=== PATIENT | male | born 1940 | race Caucasian/White ===

== ENCOUNTER 2018-03-12 09:27 | Inpatient (IN) | payer MEDICARE, BC ==
[~2018-03-12] VITALS: Ht 182.9 cm; Wt 106.1 kg
[~2018-03-12 09:27] MED LIST: ALEVE220 M1 PO; ASPIR 8181 MG PO; CENTRUM SILVER1 EAC4 PO; CHONDROITIN; COUMADIN 2 MG TA2 M1 PO; COUMADIN 3 MG TA3 M1 PO; COUMADIN 5 MG TA5 M1 PO; COZAAR 25 MG TA25 MG PO; DEMADEX20 MG PO; FLOMAX0.4 MG PO; FOLIC ACID; FOLIC ACID 40400 MC1 PO; FOSAMAX 70 MG T70 MG PO; GLUCOSAMINE &1 EAC1 PO; GLUCOSAMINE H1500 MG; GLUCOSAMINE H1500 MG PO; KEPPRA 500 MG500 M1 PO; KEPPRA250 MG PO; KLOR-CON 1010 MEQ PO; LAMICTAL100 MG; LAMICTAL100 MG PO; LASIX 40 MG TAB40 M1 PO; LUTEIN20 MG PO; MAGNESIUM500 MG PO; METOPROLOL SUCC25 M1 PO; OMEPRAZOLE 20 M20 M1; OPTI-VITAMINS1 EACH PO; OPTIFLEX-C400 MG PO; PACERONE 200 M200 M1 PO; POTASSIUM CL 225 MEQ; PRILOSEC 20 MG20 MG PO; PRILOSEC40 MG PO; SPIRONOLACTONE25 M1 PO; TAMSULOSIN HCL0.4 M1; VIT B12; VIT C; VIT D3; VITAMIN B-12500 MCG PO; VITAMIN C1000 MG PO; VITAMIN D35000 UNI1 PO
[2018-03-12 09:34] VITALS: BP 103/59
[2018-03-12] MEDS ORDERED: CARVEDILOL3.125 MG PO (09:48)
[2018-03-12] MEDS ORDERED: PROSCAR 5MG TABL5 MG PO (09:49)
[2018-03-12 10:11] LABS: ABSOLUTE EOSINOPHILS 0.1 thou/uL (0.0-0.7); ABSOLUTE LYMPHOCYTES 1.1 thou/uL (0.8-5.3); ABSOLUTE MONOCYTES 1.6 thou/uL (0.0-1.2); ABSOLUTE NEUTROPHILS 6.7 thou/uL (1.6-8.1); BASOPHILS 0.2 %; EOSINOPHILS 0.7 %; HEMATOCRIT 33.9 % (42.0-52.0); HEMOGLOBIN 11.4 gm/dL (14.0-18.0); LYMPHOCYTES 11.7 %; MCH 33.1 pg (26.0-34.0); MCHC 33.7 g/dL (28.0-37.0); MCV 98.1 fL (80.0-100.0); MONOCYTES 16.9 %; MPV 9.5 fl. (7.2-11.1); NUCLEATED RBCS 0 /100WBC; PLATELET COUNT* 156 thou/uL (150-400); POLYS 70.5 %; RBC 3.46 mil/uL (4.50-6.00); RDW-CV 13.5 % (10.5-14.5); WBC 9.5 thou/uL (4.0-11.0)
[2018-03-12 10:19] LABS: ANION GAP 7 mmol/L (7-16); BUN 19 mg/dL (7-18); CALCIUM 8.1 mg/dL (8.5-10.1); CHLORIDE 102 mmol/L (98-107); CO2 29 mmol/L (21-32); CREATININE 1.1 mg/dL (0.6-1.3); GLUCOSE 89 mg/dL (70-99); POTASSIUM 3.5 mmol/L (3.5-5.1); SODIUM 138 mmol/L (136-145)
[2018-03-12 10:20] LABS: APTT 48.5 Seconds (25.0-31.3); INR 3.2; PROTIME 30.6 Seconds (9.20-11.50)
[2018-03-12 10:29] LABS: ALBUMIN 2.9 g/dL (3.4-5.0); ALKALINE PHOSPHATASE 47 U/L (46-116); AMMONIA 12 umol/L (11-32); NT-PRO BRAIN NAT PEPTIDE 3262 pg/mL (<300); SGOT 22 U/L (15-37); SGPT 29 U/L (30-65); TOTAL BILIRUBIN 0.5 mg/dL (<0.1-1.0); TOTAL PROTEIN 7.3 g/dL (6.4-8.2); TROPONIN-I LEVEL <0.06 ng/mL (<0.06)
[2018-03-12 12:45] VITALS: BP 89/63
[2018-03-12 13:00] VITALS: BP 104/63
--- NOTE | 2018-03-12 14:33 | 2DMMODE ---
[place] [address] 2 D/M-MODE ECHOCARDIOGRAM Name: DIANA MORTENSEN Room: [address] IN .R.#: [id number] Admission: 03/12/18 Attend Phys: Montana Hussein Discharge: Date of : 36 Date of Service: 03/12/18 1433 Report #: [id number] THIS REPORT FOR: //name// APPROVED REPORT Study performed: 03/12/2018 11:31:25 EXAM: Comprehensive 2D, Doppler, and color-flow Echocardiogram Patient Location: In-Patient Room #: ER Status: routine BSA: 2.21 HR: 64 bpm BP: 83/46 mmHg Rhythm: Atrial Fibrillation Other Information Study Quality: Good Indications Hypotension 2D Dimensions LVEF(%): 39.14 (>50%) IVSd: 11.66 (7-11mm) LVOT Diam: 21.89 (18-24mm) LVDd: 54.11 mm PWd: 12.12 (7-11mm) Ascending Ao: 38.58 (22-36mm) LVDs: 43.73 (25-40mm) Aortic Root: 40.99 mm Ambrocio's LVEF: 39.14 % Volumes Left Atrial Volume (Systole) LA ESV Index: 57.60 mL/m2 Aortic Valve AoV Peak Caesar.: 1.19 m/s AO Peak Gr.: 5.68 mmHg LVOT Max P.31 mmHg AO Mean Gr.: 3.10 mmHg LVOT Mean P.04 mmHg LVOT Max V: 0.76 m/s AO V2 VTI: 19.59 cm LVOT Mean V: 0.46 m/s CHARLA (VTI): 2.76 cm2 LVOT V1 VTI: 14.38 cm AI [place]: 2.14 m/s2 AI PHT: 475.47 [place] [address] 2 D/M-MODE ECHOCARDIOGRAM Name: DIANA MORTENSEN Room: [address] IN .R.#: [id number] Admission: 03/12/18 Attend Phys: Montana Hussein Discharge: Date of : 36 Date of Service: 03/12/18 1433 Report #: [id number] Mitral Valve E/A Ratio: 2.55 MV Decel. Time: 142.96 ms MV E Max Caesar.: 0.48 m/s MV PHT: 41.46 ms MVA (PHT): 5.31 cm2 TDI E/Lateral E': 3.20 E/Medial E': 4.80 Medial E' Caesar.: 0.10 m/s Lateral E' Caesar.: 0.15 m/s Pulmonary Valve PV Peak Caesar.: 0.99 m/s PV Peak Gr.: 3.95 mmHg Tricuspid Valve RAP Estimate: 5.00 mmHg TR Peak Gr.: 35.96 mmHg PA Pressure: 40.00 mmHg Left Ventricle The left ventricle is normal size. There is global hypokinesis of the left ventricle. Mild concentric left ventricular hypertrophy. Left ventricular systolic function is severely decreased. LVEF is 25-30%. This study is not technically sufficient to allow evaluation of the LV diastolic function due to atrial fibrillation. Right Ventricle Right ventricle is dilated. The right ventricular systolic function is normal. Atria Left atrium is severely dilated. Right atrium is moderately dilated. Aortic Valve The aortic valve is normal in structure. Mild aortic regurgitation. There is no aortic valvular stenosis. Mitral Valve The mitral valve is normal in structure. Mild mitral regurgitation. No evidence of mitral valve stenosis. Tricuspid Valve The tricuspid valve is normal in structure. Moderate tricuspid regurgitation. The RVSP is 40-[place] [address] 2 D/M-MODE ECHOCARDIOGRAM Name: DIANA MORTENSEN Room: [address] IN M.R.#: [id number] Admission: 03/12/18 Attend Phys: Montana Hussein Discharge: Date of : 36 Date of Service: 03/12/18 1433 Report #: [id number] Pulmonic Valve The pulmonary valve is normal in structure. There is no pulmonic valvular regurgitation. Great Vessels Aortic root is mildly dilated. IVC is normal in size and collapses with >50% inspiration Pericardium There is no pericardial effusion. <Conclusion> Mild concentric left ventricular hypertrophy. LVEF is 25-30%. Right ventricle is dilated. Left atrium is severely dilated. Right atrium is moderately dilated. Mild aortic regurgitation. Mild mitral regurgitation. Moderate tricuspid regurgitation. The RVSP is 40-45 mmHg. <ELECTRONICALLY SIGNED> By: Dat Forman MD, FACC 03/12/18 1433 1433 1433 Dat Forman MD, FACC /INF
--- NOTE | 2018-03-12 14:40 | EKG ---
[place] [address] ELECTROCARDIOGRAM REPORT Name: DIANA MORTENSEN Room: [address] IN .R.#: [id number] Admission: 03/12/18 Attend Phys: Montana Nunes, Discharge: Date of : 36 Report #: [id number] THIS REPORT FOR: //name// [facility] ED Test Date: 2018-03-12 Test Time: 09:34:32 Pat Name: DIANA MORTENSEN Department: Room: Gender: Auto Technician Mechanic: Giorgio LEAVITT : 1940 Requested By: Miller Laughlin Order Number: [id number] MD: Dat Forman Measurements Intervals [place] Rate: 57 P: 63 VA: 85 QRS: -53 QRSD: 146 T: 71 QT: 415 QTc: 404 Interpretive Statements atrial fibrillation Left bundle branch block Compared to ECG 09/12/2014 12:27:53 Sinus rhythm no longer present Electronically Signed On 03-12-2018 14:40:39 CDT by Dat Forman [email or web address] <ELECTRONICALLY SIGNED> By: Dat Forman MD, [facility] 03/12/18 1440 0934 0934 Dat Forman MD, [facility] /EPI
--- NOTE | 2018-03-12 14:49 | NUR ---
RECEIVED REPORT FROM [facility] IN ED AND ASSUMED CARE OF PT @ 1300.PT IS A/O,VSS,TRACING AFIB WITH BBB ON THE MONITOR.LUNG SOUNDS ARE CLEAR DIMINSHED.LAST BM WAS YESTERDAY.IV LEFT HAND PATENT AND SALINE LOCKED.PT IS CALM AND COOPERATIVE WITH NO C/O PAIN AT TIME OF ASSESSMENT.PT IS UP WITH SBA TO BATHROOM.PT LEFT RESTING IN BED WITH CALL LIGHT AND FALL PRECAUTIONS IN PLACE.WILL CONTINUE TO MONITOR.
[2018-03-12 16:00] VITALS: BP 119/60
--- NOTE | 2018-03-12 18:32 | NUR ---
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 WILL CONTINUE TO MONITOR FOR DURATION OF SHIFT.
[2018-03-12 20:00] VITALS: BP 112/54
[2018-03-12] MEDS ORDERED: LAMICTAL100 MG PO (23:12)
[2018-03-13 00:25] VITALS: BP 107/55
[2018-03-13 03:56] VITALS: BP 110/60
[2018-03-13 04:04] LABS: INR 3.4; PROTIME 32.8 Seconds (9.20-11.50)
[2018-03-13 04:08] LABS: CHOLESTEROL 132 mg/dL (<200); HDL CHOLESTEROL 45 mg/dL (>40); LDL CHOLESTEROL 72 mg/dL (<100); TC:HDL 2.9 Ratio (Not establshd); TRIGLYCERIDE 79 mg/dL (<150); VLDL 16 mg/dL (<40)
[2018-03-13 04:21] LABS: SERUM ASSESSMENT CLEAR
--- NOTE | 2018-03-13 05:31 | NUR ---
ASSUMED PT CARE AT 1930. NURSING ASSESSMENT COMPLETED AT START OF SHIFT. PT TRACING AFIB WITH BUNDLE BRANCH BLOCK. HOURLY ROUNDING COMPLETED, CALL LIGHT WITHIN REACH. PT VOICED NO DIZZYNESS THIS SHIFT. PT SLOWLY PROGRESSING TOWARDS GOALS.
[2018-03-13 08:15] VITALS: BP 127/62
--- NOTE | 2018-03-13 09:44 | NUR ---
RECEIVED REPORT FROM TK AND ASSUMED CARE OF PT @ 3032.PT IS A/O,VSS,TRACING AFIB WITH BBB ON THE MONITOR.LUNG SOUNDS ARE CLEAR.LAST BM WAS YESTERDAY.IV RIGHT HAND PATENT AND SALINE LOCKED.PT IS CALM AND COOPERATIVE WITH NO C/O PAIN AT TIME OF ASSESSMENT. CALL LIGHT AND FALL PRECAUTIONS IN PLACE. WILL CONTINUE TO MONITOR.
[2018-03-13 11:54] VITALS: BP 121/64
--- NOTE | 2018-03-13 14:18 | NUR ---
Pt was sound asleep when CM went to assess, will f/u later
[2018-03-13 15:57] VITALS: BP 122/68
--- NOTE | 2018-03-13 18:09 | NUR ---
vss,cardiac monitoring in place with no changes this shift.pt progressing towards goals.pain managed well with po medications.iv patent and saline locked.cardiology restarted pt on medications.hourly rounding completed for pt safety.call light and fall precautions in place.will continue to monitor for duration of shift.
[2018-03-13 20:00] VITALS: BP 128/64
[2018-03-14] VITALS: BP 108/57
--- NOTE | 2018-03-14 03:59 | NUR ---
ASSUMED PT CARE AT 1930. NURSING ASSESSMENT COMPLETED AT START OF SHIFT. PT VOICED NO CONCERNS THIS SHFIT. PT TRACING AFIB WITH BUNDLE BRANCH BLOCK THIS SHIFT. PRN PAIN MEDICATON ADMINISTERED PER EMAR, WITH PARTIAL RELIEF. SEE EMAR FOR DOCUMENTATION. HOURLY ROUNDING COMPLETED. CALL LIGHT WITHIN REACH.
[2018-03-14 04:00] VITALS: BP 126/74
[2018-03-14 05:38] LABS: HEMATOCRIT 32.4 % (42.0-52.0); HEMOGLOBIN 10.8 gm/dL (14.0-18.0); INR 2.3; MCH 32.8 pg (26.0-34.0); MCHC 33.3 g/dL (28.0-37.0); MCV 98.3 fL (80.0-100.0); MPV 9.7 fl. (7.2-11.1); PROTIME 22.3 Seconds (9.20-11.50); RBC 3.3 mil/uL (4.50-6.00); RDW-CV 13.5 % (10.5-14.5); WBC 12.3 thou/uL (4.0-11.0)
[2018-03-14 05:41] LABS: CALCIUM 8.9 mg/dL (8.5-10.1); CREATININE 0.8 mg/dL (0.6-1.3); MAGNESIUM 2.3 mg/dL (1.8-2.4)
[2018-03-14 08:11] VITALS: BP 130/68
--- NOTE | 2018-03-14 08:45 | NUR ---
RECEIVED REPORT FROM TK AND ASSUMED CARE OF PT @ 4861.PT IS A/O,VSS,TRACING AFIB WITH BBB ON THE MONITOR.LUNG SOUNDS ARE CLEAR.ON 2L O2 NC.LAST BM WAS YESTERDAY.IV RIGHT HAND PATENT AND SALINE LOCKED.PT IS CALM AND COOPERATIVE WITH NO C/O PAIN AT TIME OF ASSESSMENT.PT IS UP SBA TO BATHROOM WITH CANE.PT LEFT RESTING IN BED WITH CALL LIGHT AND FALL PRECAUTIONS IN PLACE.WILL CONTINUE TO MONITOR.
[2018-03-14 12:00] VITALS: BP 124/75
[2018-03-14 16:00] VITALS: BP 121/68
--- NOTE | 2018-03-14 17:50 | NUR ---
VSS,CARDIAC MONITORING IN PLACE WITH NO CHANGES.PT REMAINS ON 2L O2 NC.PAIN MANAGED WELL WITH PO MEDICATIONS.IV PATENT AND SALINE LOCKED.VQ SCAN ORDERED AND US DOPPLER.PT INFORMED OF PLAN OF CARE AND COMMUNICATES UNDERSTANDING.HOURLY ROUNDING COMPLETED FOR PT SAFETY.CALL LIGHT AND FALL PRECAUTIONS IN PLACE.WILL CONTINUE TO MONITOR FOR DURATION OF SHIFT.
--- NOTE | 2018-03-14 18:19 | CON ---
[address] [address] CONSULTATION Name: DIANA MORTENSEN Room: [address] IN M.R.#: [id number] Admission: 03/12/18 Attend Phys: Montana Nunes, Discharge: Date of : 36 Report #: [id number] THIS REPORT FOR: //name// CC: Micki Nascimento DATE OF SERVICE: 03/12/2018 TYPE OF REPORT: Cardiology consultation. HISTORY OF PRESENT ILLNESS: The patient is a 77-year-old white male who I was asked to see in the hospital today because his blood pressure is low. The patient has an extensive past medical history. He has had multiple hospitalizations here at [facility]. He was found to have evidence of a cardiomyopathy and Dr. Vasquez actually performed a cardiac catheterization back in November 2003 from the right radial artery. No ventriculogram was performed. He had minimal luminal irregularities but no significant stenosis. He developed atrial fibrillation, was placed on warfarin. They attempted cardioversion back in 2013 when he was anticoagulated with warfarin and he converted back to sinus rhythm. However, he developed recurrent atrial fibrillation and he was left in atrial fibrillation. He was found to have evidence of a cardiomyopathy. His echocardiogram back in 2013 estimated his ejection fraction at 35%-40%. He has been followed by my partner, Dr. Mane in the Cardiology Clinic. Dr. Mane actually just saw him in the Cardiology Clinic last month when he was doing well. He denies any significant complaints at that time. He does continue to go to cardiac rehabilitation. However, recently, the patient has had no appetite. According to , he sleeps all the time. He does get short of breath when he exerts himself and has chronic edema. However, no orthopnea, chest pain, cough or fever. He denies any palpitation or syncope. They noticed at home his blood pressure running low. So, he was brought to the Emergency Room today. He does note some lightheadedness but has had no syncope. There have been no changes in medications recently. He has had no vomiting, diarrhea or blood in stool. He does have his INR checked frequently. PAST MEDICAL HISTORY: Significant for back surgery, cataract extraction, tonsillectomy and atrial fibrillation. No history of diabetes, hypertension or hyperlipidemia. MEDICATIONS: Consist of aspirin 81 mg a day and carvedilol 6.25 mg once a day only because twice a day caused to be lightheaded. He takes Proscar 5 mg a day, Keppra 500 mg twice a day for seizures and losartan 50 mg a day. He is on multiple vitamins, spironolactone 25 mg a day, Flomax 0.4 mg a day, Demadex 20 mg a day and warfarin 4 mg a day. ALLERGIES: He [place] [address] CONSULTATION Name: DIANA MORTENSEN Room: [address] IN ..#: [id number] Admission: 03/12/18 Attend Phys: Montana Nunes, Discharge: Date of : 36 Report #: [id number] FAMILY HISTORY: Negative for heart disease. SOCIAL HISTORY: He is . He and his live in [place], [place]. He is retired, worked in a grain elevator, never smoked, rarely drinks alcohol. REVIEW OF SYSTEMS: He has had no history of stroke, asthma, peptic ulcer disease, liver disease, kidney disease, cancer or psychiatric illness. PHYSICAL EXAMINATION: VITAL SIGNS: Blood pressure of only 100/60 and pulse 60 and irregular. He is afebrile. HEENT: He is anicteric. Conjunctivae pink. Mucous members moist. NECK: Veins nondistended. No carotid bruits. CHEST: Revealed clear lung collins. CARDIOVASCULAR: Irregular rhythm. ABDOMEN: Soft. EXTREMITIES: Had trace edema. SKIN: Cool and dry. NEUROLOGICAL: Nonfocal. RADIOLOGICAL DATA: His ECG showed atrial fibrillation with a slow rate and nonspecific ST and T-wave changes. LABORATORY DATA: Sodium 138 and creatinine 1.1. Liver function studies were normal. His LDL in 2013 was 114 with cholesterol 195, triglyceride 61 and HDL 69. INR was 3.2. White blood cell count 9.5 and hemoglobin 11.4. The patient had a chest x-ray in the Emergency Room today that showed cardiomegaly and no pulmonary edema. The patient had carotid Doppler study done in 2015 that showed no significant plaque. The patient had an echocardiogram in the clinic today that showed ejection fraction of only 30% with biatrial enlargement and moderate pulmonary hypertension. IMPRESSION AND RECOMMENDATIONS: 1. Nonischemic cardiomyopathy. Unfortunately, because of low blood pressure, the patient has difficulty tolerating adrenergic receptor binder and beta carlos. The patient is on spironolactone. Because of his wide QRS, I would consider a left ventricular lead. 2. Atrial fibrillation. Rate noted to be slow. I would discontinue the carvedilol at this time and observe. [place] [address] CONSULTATION Name: DIANA MORTENSEN Room: [address] IN .R.#: [id number] Admission: 03/12/18 Attend Phys: Montana Nunes, Discharge: Date of : 36 Report #: [id number] maintain an INR of 2-3. 3. Seizures. The patient followed by Neurology. <ELECTRONICALLY SIGNED> By: Dat Forman MD, FACC 03/14/18 1819 1549 [id number] Torrey Forman MD, FACC /nt
[2018-03-14 19:09] LABS: URINE BILIRUBIN NEGATIVE (Negative); URINE BLOOD TRACE (Negative); URINE CLARITY CLEAR; URINE COLOR YELLOW; URINE GLUCOSE-RANDOM NEGATIVE (Negative); URINE KETONES NEGATIVE (Negative); URINE LEUKOCYTES-REFLEX NEGATIVE (Negative); URINE NITRITE-REFLEX NEGATIVE (Negative); URINE PROTEIN TRACE (Negative); URINE SPECIFIC GRAVITY <= 1.005 (1.005-1.030); URINE UROBILINOGEN 0.2 E.U./dl (0.2-1.0)
[2018-03-14 20:00] VITALS: BP 126/77
[2018-03-15] VITALS (7 sets, daily range): BP systolic 111–127; BP diastolic 59–68
[2018-03-15 04:01] LABS: PROTIME 18.9 Seconds (9.20-11.50)
--- NOTE | 2018-03-15 04:11 | NUR ---
ASSUMMED PT CARE AT 1930. NURSING ASSESSMENT COMPLETED AT START OF SHIFT. PT TRACING AFIB WITH BUNDLE BRANCH BLOCK THIS SHIFT. PT C/O NECK PAIN AND BILAT HEEL PAIN THIS SHIFT, PRN PAIN MEDICATION ADMINISTERED WITH PARTIAL RELIEF. HOURLY ROUNDING COMPLETED, HIGH FALL PRECAUTIONS IN PLACE. CALL LIGHT WITHIN REACH.
--- NOTE | 2018-03-15 06:20 | NUR ---
PT C/O WORSENING JOINT PAIN THIS SHIFT, INCLUDING FEELING STIFFNESS ALL OVER. PRN PAIN MEDICATION ADMINISTERED WITH PARTIAL EFFECT.
[2018-03-15 10:23] LABS: ALBUMIN 2.7 g/dL (3.4-5.0); CALCIUM 8.5 mg/dL (8.5-10.1); CREATININE 0.9 mg/dL (0.6-1.3); POTASSIUM 3.8 mmol/L (3.5-5.1); TOTAL BILIRUBIN 0.8 mg/dL (<0.1-1.0); TOTAL PROTEIN 6.8 g/dL (6.4-8.2)
[2018-03-15 10:26] LABS: HEMATOCRIT 31.7 % (42.0-52.0); HEMOGLOBIN 10.5 gm/dL (14.0-18.0); MCH 32.5 pg (26.0-34.0); MCHC 33.1 g/dL (28.0-37.0); MCV 98.1 fL (80.0-100.0); MPV 9.1 fl. (7.2-11.1); NUCLEATED RBCS 0 /100WBC; PLATELET COUNT* 192 thou/uL (150-400); RBC 3.23 mil/uL (4.50-6.00); RDW-CV 13.5 % (10.5-14.5); WBC 14.6 thou/uL (4.0-11.0)
[2018-03-15 10:54] LABS: ABSOLUTE BASOPHILS 0.1 thou/uL (0.0-0.2); ABSOLUTE EOSINOPHILS 0.1 thou/uL (0.0-0.7); ABSOLUTE LYMPHOCYTES 1.5 thou/uL (0.8-5.3); ABSOLUTE NEUTROPHILS 11.8 thou/uL (1.6-8.1); PLATELET ESTIMATE ADEQUATE
[2018-03-15 10:55] LABS: ANISOCYTOSIS 1+; POIKILOCYTOSIS 1+
--- NOTE | 2018-03-15 11:47 | NUR ---
Pt is A&O. Pt was leaving room to go to [facility] when CM entered room. CM spoke with Pt's . Pt is A&O. Resides at home with his . Normally independent. Pt uses a cane at night when he gets up to go to the restroom. No hx of HH or SNF. PT to evaluate today. ID and Neuro consults placed. Goal is to return home at [place]. Following.
--- NOTE | 2018-03-15 13:43 | NUR ---
MET WITH PT AND HIS TO DISCUSS HEART FAILURE MEDICATIONS. DISCUSSION FOCUSED ON CARVEDILOL, LOSARTAN AND SPIRONOLACTONE. REVIEWED RATIONALE FOR MEDICATION THERAPY AND IMPORTANCE OF COMPLIANCE WITH PRESCRIBED REGIMEN. REVIEWED POTENTIAL SIDE EFFECTS AND ADVERSE REACTIONS. PT EXPRESSED UNDERSTANDING OF TOPICS DISCUSSED. LEFT CHF MEDICATION INFORMATION SHEET AND PHARMACY CONTACT INFORMATION FOR ANY FURTHER QUESTIONS OR ISSUES. THANK YOU.
--- NOTE | 2018-03-15 16:33 | NUR ---
DR. FISHMAN NOTIFIED NEED FOR COUMADIN TO BE HELD IF LP TO BE COMPLETED THIS WEEK. ORDER RECEIVED TO DC COUMADIN AND DAILY INR. DR. CHASE INTO SEE PT. AND NOTIFIED OF COUMADIN BEING HELD.
--- NOTE | 2018-03-15 19:42 | NUR ---
ASSUMED PT. CARE AND RECEIVED REPORT AT 0730. PT A/OX4, VSS, MONITOR ON TRACING AFIB. PT. C/O PAION IN HEAD/NECK, CONSISTANT WITH PREVIOUS COMPLAINTS. ON RA @ 97%. FULL ASSESSMENT COMPLETED, REFER TO CHARTING. CALL LIGHT IN REACH, WILL CONTINUE WITH PLAN OF CARE.
--- NOTE | 2018-03-15 19:44 | NUR ---
PT. STABLE THROUGH OUT SHIFT. UP TO CHAIR X2, TOLERATE WELL. ALL TESTING COMPLETED PER ORDERS TODAY. PT. CONTINUES TO C/O NECK STIFFNESS, TREATED WITH MUSCLE RUB AND TYLENOL THIS SHIFT. BP HAS REMAINED WNL, NO COMPLAINTS OF DIZZINESS OR DIAPHORETIC EPISODES. PT REMAINS A/OX4, CONVERSATIONAL TO STAFF. BEGAN USING WALKER, STILL UNSTEADY AT TIMES. PT. AT BEDSIDE THROUGH OUT THE DAY. HOURLY ROUNDING COMPLETED THROUGH OUT THE DAY FOR PT. SAFETY.
[2018-03-15 21:07] LABS: COMPLEMENT-C4 28 mg/dL (14-44)
[2018-03-16 03:30] VITALS: BP 118/75
--- NOTE | 2018-03-16 04:56 | NUR ---
ASSUMED PT CARE AT 1930. PT IS A&OX4, PT IS TRACING AFIB ON THE MONITOR, ON RA SATTING MID TO HIGH 90'S. PT C/O A STIFF NECK, PRN PAIN MEDICATIONS AND MUSCLE RUB APPLIED PER NOV. PT IS UP WITH ONE AND A WALKER TO THE BR. BED IN LOW POSITION, CALL LIGHT IN REACH, BED ALARM ON, YELLOW ARM BAND AND SOCKS IN PLACE. HOURLY ROUNDING COMPLETED FOR PT SAFETY.
[2018-03-16 05:00] LABS: CALCIUM 8.6 mg/dL (8.5-10.1); POTASSIUM 3.8 mmol/L (3.5-5.1)
[2018-03-16 05:04] LABS: INR 1.8
[2018-03-16 07:28] LABS: INR 1.7; PROTIME 16.9 Seconds (9.20-11.50)
--- NOTE | 2018-03-16 08:15 | CON ---
[address] [address] CONSULTATION Name: DIANA MORTENSEN Room: [address] IN M.R.#: [id number] Admission: 03/12/18 Attend Phys: Montana Nunes, Discharge: Date of : 38 Report #: [id number] THIS REPORT FOR: //name// CC: Micki Nunes DATE OF SERVICE: 03/15/2018 ATTENDING PHYSICIAN: Avni Cm M.D. 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 HISTORY OF PRESENT ILLNESS: Chart reviewed, patient examined. This is a 77-year-old with a history of seizures, although none recently. He has been on the same treatment for last several months to years, who over the course of the last several days, had multiple types of new signs and symptoms per spouse. He has developed a situation where he has had now back pain, seemingly that radiates down his neck, although he prefers to have his chin resting on his chest. It was not clear if he had fevers. He has had some sweats and recently has been hypotensive with systolics in the 70s. He does appear unsteady when he stands, although he typically uses a cane. He has had a poor appetite. He did have some episodes of diarrhea. He does maintain a fairly active lifestyle typically, he is exposed to the outside. It is not clear if he has had any arthropod exposure, no animal exposure, no recent travel, no known dietary indiscretion, although he does eat leftover food from restaurants at times. At this point, he is quite lucid, although he is typically very talkative. He is quiet per spouse. Evaluation was fairly unrevealing thus far. He has had a mild monocytosis. He does have coagulopathy, though he is on warfarin. Elevated CRP to 11. Urinalysis was unrevealing. Chest x-ray was unrevealing. Sed rate of 50. TSH was normal. Echo, valves were otherwise unremarkable, except showed moderate tricuspid regurgitation. Stool and blood cultures are pending, although thus far, the latter is unrevealing. ASSESSMENT: Central nervous system dysfunction, uncertain etiology. I certainly cannot exclude a component of infection, I would think more typical of viral or atypical. He does have some exposures potentially to arthropods, would favor a lumbar puncture to evaluate. Other considerations include some sort of autoimmune, endocrine, paraneoplastic syndrome. 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 He does admit some weight loss, although it has been somewhat purposeful. I think to exclude an occult process with CT of his abdomen and pelvis as well, we will start empiric doxycycline and go ahead and do the lumbar puncture. I discussed with Dr. Brennan, Neurology. <ELECTRONICALLY SIGNED> By: Kwan Trujillo MD 03/16/18 0815 11 19Joallie Trujillo MD /nt
--- NOTE | 2018-03-16 08:24 | NUR ---
ASSSUMED PT. CARE AND RECEIVED REPORT AT 0730. PT A/OX4, VSS, MONITOR ON TRACING AFIB. PT. REPORTS STIFF NECK/HEAD THIS MORNING, CONSISTANT WITH PREVIOUS COMPLAINTS. ON RA @ 95%. FULL ASSESSMENT COMPLETED, REFER TO CHARTING. PT. STATES CONCERN IF FEET ARE COOL TO TOUCH BILATERALLY, UPON ASSESSMENT THEY ARE BOTH WARM WITH 2+ PULSES. PT. COLORING AND DEMEANOR ARE BOTH IMPROVED THIS MORNING FROM YESTERDAY. PT. SMILING AND CONVERSATIONAL. CALL LIGHT IN REACH, WILL CONTINUE WITH PLAN OF CARE.
[2018-03-16 08:30] VITALS: BP 126/65
[2018-03-16 12:00] VITALS: BP 97/53
[2018-03-16 15:49] LABS: CSF COLOR ND; VOLUME ND ml
[2018-03-16 15:50] LABS: CSF CLARITY ND
[2018-03-16 15:51] LABS: CSF WBC ND /mm3 (0-10)
[2018-03-16 15:52] LABS: CSF EOSINOPHILS ND %; CSF LYMPHOCYTES ND % (40-80); CSF MONONUCLEARS ND % (15-45); CSF OTHER ND; CSF POLYS ND % (0-6); CSF RBC ND /mm3
[2018-03-16 15:53] LABS: CSF GLUCOSE ND mg/dl (40-70); CSF PROTEIN ND mg/dl (15-45)
[2018-03-16 16:00] VITALS: BP 102/60
--- NOTE | 2018-03-16 19:06 | NUR ---
PT. STABLE THROUGH OUT SHIFT. UP TO CHAIR FOR MEALS. TREATED FOR NECK/HEAD PAIN X 2 WITH TYLENOL. NO NEW COMPLAINTS THIS SHIFT. PT. HER THROUGH OUT THE DAY AND ABLE TO DISCUSS PLAN WITH DR. MILLER/RENA/FELISHA/SRAVANTHI. HOURLY ROUNDING COMPLETED THROUGH OUT THE DAY FOR PT. SAFETY.
[2018-03-16 20:00] VITALS: BP 117/65
[2018-03-17] VITALS: BP 115/68
--- NOTE | 2018-03-17 03:33 | NUR ---
ASSUMED PT CARE AT 1930, PT IS A&OX4, PT IS TRACING AFIB ON THE MONITOR, ON RA SATTING MDI TO HIGH 90'S. PT C/O NECK PAIN PRN MEDICATIONS GIVEN NOV. PT IS UP WITH ONE AND A WALKER TO THE BR. BED IN LOW POSITION, CALL LIGHT IN REACH, BED ALARM ON, YELLOW ARM BAND AND SOCKS IN PLACE. HOURLY ROUNDING COMPLETED FOR PT SAFETY.
[2018-03-17 04:00] VITALS: BP 122/66
[2018-03-17 05:08] LABS: ABSOLUTE EOSINOPHILS 0.1 thou/uL (0.0-0.7); ABSOLUTE LYMPHOCYTES 0.9 thou/uL (0.8-5.3); ABSOLUTE MONOCYTES 1.4 thou/uL (0.0-1.2); ABSOLUTE NEUTROPHILS 6.8 thou/uL (1.6-8.1); BASOPHILS 0.4 %; EOSINOPHILS 1.5 %; HEMATOCRIT 29.5 % (42.0-52.0); HEMOGLOBIN 9.8 gm/dL (14.0-18.0); LYMPHOCYTES 9.7 %; MCH 32.7 pg (26.0-34.0); MCHC 33.4 g/dL (28.0-37.0); MCV 97.8 fL (80.0-100.0); MPV 9.1 fl. (7.2-11.1); NUCLEATED RBCS 0 /100WBC; PLATELET COUNT* 218 thou/uL (150-400); POLYS 73.4 %; RBC 3.02 mil/uL (4.50-6.00); RDW-CV 13.5 % (10.5-14.5); WBC 9.3 thou/uL (4.0-11.0)
[2018-03-17 05:21] LABS: INR 1.5; PROTIME 14.4 Seconds (9.20-11.50)
[2018-03-17 05:46] LABS: ALBUMIN 2.4 g/dL (3.4-5.0); CALCIUM 8.4 mg/dL (8.5-10.1); CREATININE 0.9 mg/dL (0.6-1.3); POTASSIUM 3.5 mmol/L (3.5-5.1); TOTAL BILIRUBIN 0.6 mg/dL (<0.1-1.0); TOTAL PROTEIN 6.8 g/dL (6.4-8.2)
[2018-03-17 07:26] LABS: INR 1.5; PROTIME 14.3 Seconds (9.20-11.50)
[2018-03-17 07:40] VITALS: BP 128/74
--- NOTE | 2018-03-17 08:31 | NUR ---
RECEIVED REPORT FROM NADIA AND ASSUMED CARE OF PT @ 1719.PT IS A/O,VSS,TRACING AFIB WITH BBB ON THE MONITOR.LUNG SOUNDS ARE CLEAR.LAST BM WAS TODAY.IV LEFT FOREARM PATENT AND SALINE LOCKED.PT IS CALM AND COOPERATIVE WITH C/O OF PAIN IN THE BACK OF THE HEAD 5 OUT OF 10.MEDICATIONS GIVEN.UP WITH ONE ASSIST WITH WALKER.PT LEFT RESTING IN BED WITH CALL LIGHT AND FALL PRECAUTIONS IN PLACE.WILL CONTINUE TO MONITOR.
[2018-03-17 12:00] VITALS: BP 123/54
[2018-03-17 15:35] VITALS: BP 107/66
--- NOTE | 2018-03-17 18:27 | NUR ---
VSS,CARDIAC MONITORING IN PLACE WITH NO CHANGES THIS SHIFT.PT REMAINS ON ROOM AIR.PT PAIN MANAGED WELL WITH PO MEDICATIONS.IV ANTIBIOTICS COMPLETED.NEW IV INSERTED IN RIGHT FOREARM.PT INFORMED OF PLAN OF CARE AND COMMUNICATES UNDERSTANDING.PT WALKED WITH PHYSICAL THERAPY IN [place].HOURLY ROUNDING COMPLETED FOR PT SAFETY.CALL LIGHT AND FALL PRECAUTIONS IN PLACE.WILL CONTINUE TO MONITOR FOR DURATION OF SHIFT.STILL HOLDING COUMADIN PER ORDERS.
[2018-03-17 20:00] VITALS: BP 120/64
[2018-03-18] VITALS: BP 129/68
[2018-03-18 04:00] VITALS: BP 133/71
[2018-03-18 04:34] LABS: ABSOLUTE EOSINOPHILS 0.2 thou/uL (0.0-0.7); ABSOLUTE LYMPHOCYTES 1.2 thou/uL (0.8-5.3); ABSOLUTE MONOCYTES 1.2 thou/uL (0.0-1.2); ABSOLUTE NEUTROPHILS 5.8 thou/uL (1.6-8.1); BASOPHILS 0.4 %; HEMATOCRIT 30.5 % (42.0-52.0); HEMOGLOBIN 10.1 gm/dL (14.0-18.0); LYMPHOCYTES 14.2 %; MCH 32.5 pg (26.0-34.0); MCHC 33.2 g/dL (28.0-37.0); MCV 97.8 fL (80.0-100.0); MONOCYTES 14.1 %; MPV 8.6 fl. (7.2-11.1); NUCLEATED RBCS 0 /100WBC; PLATELET COUNT* 255 thou/uL (150-400); POLYS 69.3 %; RBC 3.12 mil/uL (4.50-6.00); RDW-CV 13.6 % (10.5-14.5); WBC 8.4 thou/uL (4.0-11.0)
[2018-03-18 04:52] LABS: INR 1.3; PROTIME 12.9 Seconds (9.20-11.50)
[2018-03-18 04:56] LABS: ALBUMIN 2.5 g/dL (3.4-5.0); CALCIUM 8.6 mg/dL (8.5-10.1); CREATININE 0.9 mg/dL (0.6-1.3); POTASSIUM 3.6 mmol/L (3.5-5.1); TOTAL BILIRUBIN 0.4 mg/dL (<0.1-1.0); TOTAL PROTEIN 7.1 g/dL (6.4-8.2)
--- NOTE | 2018-03-18 06:56 | NUR ---
PATIENT RESTED IN BED, NO ACUTE CHANGES. PATIENT DID NOT SHOW SIGNS OF DISTRESS. FALL PRECAUTIONS IN PLACE, BED ALARM ON, CALL LIGHT WITHIN REACH, HOURLY ROUNDING OBSERVED.
[2018-03-18 08:04] VITALS: BP 140/75
--- NOTE | 2018-03-18 11:06 | NUR ---
RECEIVED REPORT FROM RICH AND ASSUMED CARE OF PT @ 0302.PT IS A/O,VSS,TRACING AFIB WITH BBB ON THE MONITOR.LUNG SOUNDS ARE CLEAR.LAST BM WAS TODAY.IV RIGHT FOREARM PATENT AND SALINE LOCKED.PT IS CALM AND COOPERATIVE WITH C/O HEADACHE PAIN.PT BREAKFAST HELD DUE TO LUMBAR PUNCTURE TEST.PT IS UP WITH ONE ASSIST WITH WALKER.PT LEFT RESTING IN BED WITH CALL LIGHT AND FALL PRECAUTIONS IN PLACE.WILL CONTINUE TO MONITOR.
[2018-03-18 11:30] VITALS: BP 121/56
[2018-03-18 12:05] LABS: ANA INTERPRETATION Positive (Negative)
[2018-03-18 12:52] LABS: CSF CLARITY CLEAR; CSF COLOR COLORLESS; CSF WBC 0 /mm3 (0-10); VOLUME 14.5 ml
[2018-03-18 12:55] LABS: CSF RBC 1 /mm3
[2018-03-18 14:54] LABS: CSF GLUCOSE 59 mg/dl (40-70); CSF PROTEIN 38.3 mg/dl (15-45)
[2018-03-18 16:00] VITALS: BP 121/59
--- NOTE | 2018-03-18 17:43 | NUR ---
VSS,CARDIAC MONITORING IN PLACE WITH NO CHANGES.PT REMAINS ON ROOM AIR.PT PROGRESSING TOWARDS GOALS.PAIN WELL MANAGED WITH PO MEDICATIONS.IV PATENT AND SALINE LOCKED.LUMBAR PUNCTURE AND MRA COMPLETED.PT AMBULATED WITH PHYSICAL THERAPY.HOURLY ROUNDING COMPLETED FOR PT SAFETY.CALL LIGHT AND FALL PRECAUTIONS IN PLACE.WILL CONTINUE TO MONITOR FOR DURATION OF SHIFT.POSSIBLE D/C TOMORROW.COUMADIN STILL BEING HELD.
[2018-03-18 20:00] VITALS: BP 126/66
[2018-03-19] VITALS: BP 125/59
--- NOTE | 2018-03-19 03:15 | NUR ---
PATIENT RESTED IN BED, NO ACUTE CHANGES. PATIENT'S PAIN WAS TREATED WITH MEDS. PATIENT DID NOT SHOW SIGNS OF DISTRESS. FALL PRECAUTIONS IN PLACE, BED ALARM ON, CALL LIGHT WITHIN REACH, HOULRY ROUNDING OBSERVED.
[2018-03-19 04:50] VITALS: BP 115/47
--- NOTE | 2018-03-19 06:57 | NUR ---
PATIENT DENIES PAIN AT SHIFT END.
[2018-03-19 07:32] LABS: INR 1.2
[2018-03-19 08:59] VITALS: BP 152/63
[2018-03-19 09:09] VITALS: BP 152/63
[2018-03-19] MEDS ORDERED: DOXYCYCLINE 10100 MG PO (10:26)
--- NOTE | 2018-03-19 13:08 | NUR ---
Nutrition: Pt admitted for fever, hypotension. Assessed for LOS. Pt wants to discharge home. Wt stable, 234#. Heart Healthy diet ordered. PMHx: seizure disorder, CHF, BPH, SIRS, hypotension. Alb 2.5, prealb 14.8. RXL MVI, B12, vit C, D3. Low nutrition risk.
--- NOTE | 2018-03-19 13:33 | NUR ---
Received order from physician to arrange home health. Reviewed chart and spoke with nurse, pt and spouse. Pt said he is not interested in home health. Pt and spouse said that pt will not be homebound and is interested outpatient PT at [facility]. No other needs identified.
--- NOTE | 2018-03-19 13:58 | NUR ---
ASSUMED CARE OF PATIENT AFTER REPORT THIS MORNING. PATIENT AWAKE, ALERT, AND ORIENTED APPROPRIATELY. PHYSICAL ASSESSMENT COMPLETED AND CHARTED. NO COMPLAINTS OF PAIN. GIVEN SCHEDULED MEDICATIONS, SEE EMAR FOR DOCUMENTATION. VITAL SIGNS STABLE. OXYGEN SATURATION WITHIN NORMAL LIMITS ON ROOM AIR. RECEIVED ORDERS TO DISCHARGE PATIENT HOME. DISCHARGE PAPERWORK COMPLETED AND DISCUSSED WITH PATIENT AND SIGNED, ON PATIENT CHART. ALSO DISCUSSED PRESCRIPTION FOR DOXYCYCLINE SENT HOME WITH PATIENT. IV DISCONTINUED AND HEART MONITOR RETURNED TO NURSE'S STATION. PATIENT DISCHARGED AT 1354. ESCORTED TO FRONT DOOR VIA WHEELCHAIR BYNelson UREÑA NURSE. BELONGINGS IN PATIENT'S POSSESSION.
--- NOTE | 2018-03-22 09:40 | EEG ---
[address] [address] EEG STUDY REPORT Name: DIANA MORTENSEN Room: [address] IN M.R.#: [id number] Admission: 03/12/18 Attend Phys: Montana Nunes, Discharge: 03/19/18 Date of : 36 Report #: [id number] THIS REPORT FOR: //name// CC: Micki Nunes DATE OF SERVICE: 03/16/2018 This patient's EEG was done by placing the electrodes by standard 10-20 system of electrode placement. Both referential and sequential montages were used for recording. Moderate amount of artifact is present. Background activity is about 9-10 Hz and 30 microvolts. It is intermixed with theta range slowing on both sides. Photic stimulation is unremarkable. This patient went to sleep that is associated with bilaterally symmetrical sleep spindle and vertex sharp waves. Throughout the record, no active epileptiform activity was noticed. IMPRESSION: This patient's EEG demonstrates some theta range slowing on both sides, but I did not see any active epileptiform activity. Thank you very much for this referral. <ELECTRONICALLY SIGNED> By: Ezra Brennan MD 03/22/18 0940 1243 1300Parjaci Brennan MD /nt
--- NOTE | 2018-03-22 09:40 | CON ---
[address] [address] CONSULTATION Name: DIANA MORTENSEN Room: [address] IN .R.#: [id number] Admission: 03/12/18 Attend Phys: Montana Nunes, Discharge: 03/19/18 Date of : 38 Report #: [id number] THIS REPORT FOR: //name// CC: Micki Nunes DATE OF SERVICE: 03/15/2018 HISTORY OF PRESENT ILLNESS: This is a 77-year-old male patient who was evaluated with some low blood pressure according to the patient and some seizure-like activity. I am not able to reach the patient's , I am not able to confirm that history, but records indicate his blood pressure was low when he came in. He was having some headache and he is still having some headache and neck pain. Presently, he is going for CT of the abdomen. He also gives some history of seizures in the past, but does not define that history further. REVIEW OF SYSTEMS: Indicates that he was admitted with low blood pressure. He has a history of CHF and atrial fibrillation. His blood pressure was as low as 70s when he came in, he still has a headache. He was on morphine. He has a history of slow urination. He had some labored breathing. He denies any abdominal trauma. He has skin graft, arthritis, back surgery, foot fractures, retinal surgeries in the past. A 14-system review of systems was carried out. He denies any new eye, ENT, GI, constitutional, dermatological, hematological, psychiatric, throat, allergic symptom associated with present symptomatology. PAST MEDICAL HISTORY: Positive for multiple problems including back surgeries. FAMILY HISTORY: Negative for early age stroke. SOCIAL HISTORY: He drinks alcohol on special occasions. PHYSICAL EXAMINATION: Indicate he is alert, responsive, oriented. He is able to follow simple commands. His speech, concentration, fund of knowledge and memory is at his baseline. Cranial nerve examination 2-12 looks unremarkable. He moves all 4 extremities, but he appeared to be weak in all 4 extremities. His reflexes are difficult to elicit. His touch appeared to be present and tone looks symmetrical. His tbxtrb-wd-jqen looks unremarkable. I could not look at the patient's fundus. His pulses are difficult to feel. He has no edema, cyanosis or jaundice. He is a well-developed individual who does not have any dysmorphic features of eyes, ears and face. His vision and hearing is adequate. He has no thyroid mass. He is being followed by Cardiology for his cardiac issues, which is heart failure. He has no respiratory difficulty or rhonchi on either side. His blood pressure is 112/65, respirations 17, pulse is 75, temperature is 98.5. LABORATORY DATA: His white count is 14.6. His sodium is 133. [place] [address] CONSULTATION Name: KELLYGOLDIE GOMEZROLD MARIE Room: [address]#: [id number] Admission: 03/12/18 Attend Phys: Montana Nunes, Discharge: 03/19/18 Date of : 38 Report #: [id number] any imaging study. IMPRESSION: Looks like his symptom may have been secondary to his hypertension. He has a history of seizure and he is on Lamictal and Keppra. I need to get hold of the to get a better history to see if we need to change anything there. RECOMMENDATION: 1. EEG. 2. We will get a CT of the head and C-spine because he is complaining of pain there. 3. We will check on that and follow up after the above is done to see if we need to do anything different. Thank you very much for this referral. <ELECTRONICALLY SIGNED> By: Ezra Brennan MD 03/22/18 0940 1508 1947Ezra Brennan MD /nt
== END 2018-03-19 13:51 | disposition home or self-care (01) | DRG 291 ==
LOC: M.ERS 09:27 → M.2W 10:40 → M.TBA-ER 10:40 → M.2W 13:02
PROVIDERS: Emergency Medicine Emergency Medical Services; Internal Medicine; Internal Medicine Cardiovascular Disease; Specialist; ADMIT Family Medicine
PROC: 009U3ZX Drainage of Spinal Canal, Percutaneous Approach, Diagnostic (ICD-10-PCS; principal; 2018-03-18)
DX: I50.23 Acute on chronic systolic (congestive) heart failure (principal); J96.01 Acute respiratory failure with hypoxia; G93.40 Encephalopathy, unspecified; R65.10 Systemic inflammatory response syndrome (SIRS) of non-infectious origin without acute organ dysfunction; I42.9 Cardiomyopathy, unspecified; B34.9 Viral infection, unspecified; I11.0 Hypertensive heart disease with heart failure; R19.7 Diarrhea, unspecified; T46.5X5A Adverse effect of other antihypertensive drugs, initial encounter; I48.2 Chronic atrial fibrillation; I95.2 Hypotension due to drugs; G40.909 Epilepsy, unspecified, not intractable, without status epilepticus; M19.90 Unspecified osteoarthritis, unspecified site; N40.0 Benign prostatic hyperplasia without lower urinary tract symptoms; K21.9 Gastro-esophageal reflux disease without esophagitis; Z87.81 Personal history of (healed) traumatic fracture; Z79.01 Long term (current) use of anticoagulants; Z79.82 Long term (current) use of aspirin; Z79.899 Other long term (current) drug therapy; Z91.048 Other nonmedicinal substance allergy status; Z82.49 Family history of ischemic heart disease and other diseases of the circulatory system; Y92.89 Other specified places as the place of occurrence of the external cause

== ENCOUNTER → 2018-07-20 | Outpatient (CLI) | payer MEDICARE, BC ==
[~2018-07-20] MED LIST changes: +CARVEDILOL3.125 MG PO; +DOXYCYCLINE 10100 MG PO; +PROSCAR 5MG TABL5 MG PO
--- NOTE | 2018-07-20 14:02 | 2DMMODE ---
[place] [address] 2 D/M-MODE ECHOCARDIOGRAM Name: DIANA MORTENSEN Room: [facility]#: [id number] Admission: 07/20/18 Attend Phys: Kameron Mane, Discharge: Date of : 38 Date of Service: 07/20/18 1402 Report #: [id number] THIS REPORT FOR: //name// APPROVED REPORT Study performed: 07/20/2018 10:32:49 EXAM: Comprehensive 2D, Doppler, and color-flow Echocardiogram Patient Location: Out-Patient BSA: 2.21 HR: 66 bpm BP: 118/80 mmHg Other Information Study Quality: Good Indications Atrial Fibrillation Cardiomyopathy 2D Dimensions IVSd: 9.42 (7-11mm) LVOT Diam: 20.31 (18-24mm) LVDd: 59.01 mm PWd: 11.82 (7-11mm) Ascending Ao: 35.59 (22-36mm) LVDs: 45.60 (25-40mm) Aortic Root: 33.06 mm Volumes Left Atrial Volume (Systole) LA ESV Index: 40.40 mL/m2 Aortic Valve AoV Peak Caesar.: 1.15 m/s AO Peak Gr.: 5.28 mmHg LVOT Max P.84 mmHg AO Mean Gr.: 2.90 mmHg LVOT Mean P.84 mmHg LVOT Max V: 0.68 m/s AO V2 VTI: 20.72 cm LVOT Mean V: 0.41 m/s CHARLA (VTI): 2.09 cm2 LVOT V1 VTI: 13.39 cm Mitral Valve MV Decel. Time: 281.78 ms MV PHT: 81.72 ms MVA (PHT): 2.69 [place] [address] 2 D/M-MODE ECHOCARDIOGRAM Name: DIANA MORTENSEN Room: [facility]#: [id number] Admission: 07/20/18 Attend Phys: Kameron Mane, Discharge: Date of : 38 Date of Service: 07/20/18 1402 Report #: [id number] TDI Medial E' Caesar.: 0.10 m/s Lateral E' Caesar.: 0.16 m/s Pulmonary Valve PV Peak Caesar.: 0.99 m/s PV Peak Gr.: 3.88 mmHg Tricuspid Valve RAP Estimate: 5.00 mmHg TR Peak Gr.: 33.09 mmHg RVSP: 38.09 mmHg PA Pressure: 38.09 mmHg Left Ventricle The left ventricle is normal size. There is left ventricular dyssynergy noted consistent with underlying bundle branch block. There is mild global hypokinesis. There is normal left ventricular wall thickness. Left ventricular systolic function is mildly decreased. LVEF is 40-45%. This study is not technically sufficient to allow evaluation of the LV diastolic function due to atrial fibrillation. Right Ventricle The right ventricle is normal size. The right ventricular systolic function is normal. Atria Left atrium is moderately dilated. Right atrium is moderately dilated. Aortic Valve The aortic valve is normal in structure. Mild aortic regurgitation. There is no aortic valvular stenosis. Mitral Valve The mitral valve is normal in structure. Mild mitral regurgitation. No evidence of mitral valve stenosis. Tricuspid Valve The tricuspid valve is normal in structure. Moderate tricuspid regurgitation. The RVSP is 40-45 mmHg. Pulmonic Valve The pulmonary valve is normal in structure. There is no pulmonic valvular [place] [address] 2 D/M-MODE ECHOCARDIOGRAM Name: DIANA MORTENSEN [id number] Admission: 07/20/18 Attend Phys: Kameron Mane, Discharge: Date of : 38 Date of Service: 07/20/18 1402 Report #: [id number] The aortic root is normal in size. IVC is normal in size and collapses >50% with inspiration. Pericardium There is no pericardial effusion. <Conclusion> The left ventricle is normal size. There is normal left ventricular wall thickness. Left ventricular systolic function is mildly decreased. LVEF is 40-45%. This study is not technically sufficient to allow evaluation of the LV diastolic function due to atrial fibrillation. Left atrium is moderately dilated. Right atrium is moderately dilated. Mild aortic regurgitation. Mild mitral regurgitation. Moderate tricuspid regurgitation. The RVSP is 40-45 mmHg. IVC is normal in size and collapses >50% with inspiration. <ELECTRONICALLY SIGNED> By: Kameron Mane MD, FACC 07/20/18 140 01 140 Kameron Mane MD, FACC /INF
== END ==
LOC: M.CRD 10:00
DX: I08.3 Combined rheumatic disorders of mitral, aortic and tricuspid valves (principal); I42.8 Other cardiomyopathies

== ENCOUNTER → 2018-08-12 | Outpatient (CLI) | payer MEDICARE, BC | LOC: M.WC 09:34 | DX: I87.311 Chronic venous hypertension (idiopathic) with ulcer of right lower extremity (principal); L97.812 Non-pressure chronic ulcer of other part of right lower leg with fat layer exposed; E11.42 Type 2 diabetes mellitus with diabetic polyneuropathy; E78.5 Hyperlipidemia, unspecified; D69.6 Thrombocytopenia, unspecified; G40.909 Epilepsy, unspecified, not intractable, without status epilepticus; I11.0 Hypertensive heart disease with heart failure; I50.22 Chronic systolic (congestive) heart failure; I27.20 Pulmonary hypertension, unspecified; I25.10 Atherosclerotic heart disease of native coronary artery without angina pectoris; I48.2 Chronic atrial fibrillation; K21.9 Gastro-esophageal reflux disease without esophagitis; M81.0 Age-related osteoporosis without current pathological fracture; M35.00 Sjogren syndrome, unspecified; N40.1 Benign prostatic hyperplasia with lower urinary tract symptoms; Z98.49 Cataract extraction status, unspecified eye ==

== ENCOUNTER → 2018-08-16 | Outpatient (CLI) | payer MEDICARE, BC | LOC: M.WC 11:00 | DX: I87.311 Chronic venous hypertension (idiopathic) with ulcer of right lower extremity (principal); L97.811 Non-pressure chronic ulcer of other part of right lower leg limited to breakdown of skin; E78.5 Hyperlipidemia, unspecified; D69.6 Thrombocytopenia, unspecified; G40.909 Epilepsy, unspecified, not intractable, without status epilepticus; G62.9 Polyneuropathy, unspecified; I11.0 Hypertensive heart disease with heart failure; I50.22 Chronic systolic (congestive) heart failure; I27.20 Pulmonary hypertension, unspecified; I25.10 Atherosclerotic heart disease of native coronary artery without angina pectoris; I48.2 Chronic atrial fibrillation; K21.9 Gastro-esophageal reflux disease without esophagitis; M81.0 Age-related osteoporosis without current pathological fracture; M35.00 Sjogren syndrome, unspecified; N40.1 Benign prostatic hyperplasia with lower urinary tract symptoms; Z98.49 Cataract extraction status, unspecified eye ==

== ENCOUNTER → 2018-08-19 | Outpatient (CLI) | payer MEDICARE, BC | LOC: M.WC 04:48 | DX: I87.311 Chronic venous hypertension (idiopathic) with ulcer of right lower extremity (principal); L97.812 Non-pressure chronic ulcer of other part of right lower leg with fat layer exposed; E78.5 Hyperlipidemia, unspecified; D69.6 Thrombocytopenia, unspecified; G40.909 Epilepsy, unspecified, not intractable, without status epilepticus; G62.9 Polyneuropathy, unspecified; I11.0 Hypertensive heart disease with heart failure; I50.22 Chronic systolic (congestive) heart failure; I27.20 Pulmonary hypertension, unspecified; I25.10 Atherosclerotic heart disease of native coronary artery without angina pectoris; I48.2 Chronic atrial fibrillation; K21.9 Gastro-esophageal reflux disease without esophagitis; M81.0 Age-related osteoporosis without current pathological fracture; M35.00 Sjogren syndrome, unspecified; N40.1 Benign prostatic hyperplasia with lower urinary tract symptoms ==

== ENCOUNTER → 2018-08-26 | Outpatient (CLI) | payer MEDICARE, BC | LOC: M.WC 05:24 | DX: I87.311 Chronic venous hypertension (idiopathic) with ulcer of right lower extremity (principal); L97.812 Non-pressure chronic ulcer of other part of right lower leg with fat layer exposed; E78.5 Hyperlipidemia, unspecified; G40.909 Epilepsy, unspecified, not intractable, without status epilepticus; G62.9 Polyneuropathy, unspecified; I11.0 Hypertensive heart disease with heart failure; I50.22 Chronic systolic (congestive) heart failure; I27.20 Pulmonary hypertension, unspecified; I48.2 Chronic atrial fibrillation; I25.10 Atherosclerotic heart disease of native coronary artery without angina pectoris; K21.9 Gastro-esophageal reflux disease without esophagitis; M35.00 Sjogren syndrome, unspecified; M81.0 Age-related osteoporosis without current pathological fracture; N40.1 Benign prostatic hyperplasia with lower urinary tract symptoms ==

== ENCOUNTER → 2018-09-02 | Outpatient (CLI) | payer MEDICARE, BC | LOC: M.WC 01:43 | DX: I87.311 Chronic venous hypertension (idiopathic) with ulcer of right lower extremity (principal); L97.812 Non-pressure chronic ulcer of other part of right lower leg with fat layer exposed; D69.6 Thrombocytopenia, unspecified; E78.5 Hyperlipidemia, unspecified; G62.9 Polyneuropathy, unspecified; G40.909 Epilepsy, unspecified, not intractable, without status epilepticus; I11.0 Hypertensive heart disease with heart failure; I50.22 Chronic systolic (congestive) heart failure; I48.2 Chronic atrial fibrillation; I25.10 Atherosclerotic heart disease of native coronary artery without angina pectoris; I27.20 Pulmonary hypertension, unspecified; K21.9 Gastro-esophageal reflux disease without esophagitis; M81.0 Age-related osteoporosis without current pathological fracture; M35.00 Sjogren syndrome, unspecified; N40.1 Benign prostatic hyperplasia with lower urinary tract symptoms ==

== ENCOUNTER → 2018-09-09 | Outpatient (CLI) | payer MEDICARE, BC | LOC: M.WC 04:32 | DX: I87.311 Chronic venous hypertension (idiopathic) with ulcer of right lower extremity (principal); L97.812 Non-pressure chronic ulcer of other part of right lower leg with fat layer exposed; E78.5 Hyperlipidemia, unspecified; D69.6 Thrombocytopenia, unspecified; G40.909 Epilepsy, unspecified, not intractable, without status epilepticus; G62.9 Polyneuropathy, unspecified; I11.0 Hypertensive heart disease with heart failure; I50.22 Chronic systolic (congestive) heart failure; I27.20 Pulmonary hypertension, unspecified; I25.10 Atherosclerotic heart disease of native coronary artery without angina pectoris; I48.2 Chronic atrial fibrillation; K21.9 Gastro-esophageal reflux disease without esophagitis; M81.0 Age-related osteoporosis without current pathological fracture; M35.00 Sjogren syndrome, unspecified; N40.1 Benign prostatic hyperplasia with lower urinary tract symptoms ==

== ENCOUNTER → 2018-09-16 | Outpatient (CLI) | payer MEDICARE, BC | LOC: M.WC 07:34 | DX: I87.311 Chronic venous hypertension (idiopathic) with ulcer of right lower extremity (principal); L97.811 Non-pressure chronic ulcer of other part of right lower leg limited to breakdown of skin; I87.2 Venous insufficiency (chronic) (peripheral); D69.6 Thrombocytopenia, unspecified; E78.5 Hyperlipidemia, unspecified; G40.909 Epilepsy, unspecified, not intractable, without status epilepticus; G62.9 Polyneuropathy, unspecified; I48.2 Chronic atrial fibrillation; I11.0 Hypertensive heart disease with heart failure; I50.22 Chronic systolic (congestive) heart failure; I27.20 Pulmonary hypertension, unspecified; I25.10 Atherosclerotic heart disease of native coronary artery without angina pectoris; K21.9 Gastro-esophageal reflux disease without esophagitis; M35.00 Sjogren syndrome, unspecified; M81.0 Age-related osteoporosis without current pathological fracture; N40.1 Benign prostatic hyperplasia with lower urinary tract symptoms ==

== ENCOUNTER → 2018-09-23 | Outpatient (CLI) | payer MEDICARE, BC | LOC: M.WC 05:15 | DX: I87.311 Chronic venous hypertension (idiopathic) with ulcer of right lower extremity (principal); L97.812 Non-pressure chronic ulcer of other part of right lower leg with fat layer exposed; E11.42 Type 2 diabetes mellitus with diabetic polyneuropathy; I25.10 Atherosclerotic heart disease of native coronary artery without angina pectoris; I48.2 Chronic atrial fibrillation; I11.0 Hypertensive heart disease with heart failure; I50.22 Chronic systolic (congestive) heart failure; N40.1 Benign prostatic hyperplasia with lower urinary tract symptoms; K21.9 Gastro-esophageal reflux disease without esophagitis; I48.91 Unspecified atrial fibrillation; E78.5 Hyperlipidemia, unspecified; I27.20 Pulmonary hypertension, unspecified; M81.0 Age-related osteoporosis without current pathological fracture; G40.909 Epilepsy, unspecified, not intractable, without status epilepticus ==

== ENCOUNTER → 2018-09-30 | Outpatient (CLI) | payer MEDICARE, BC | LOC: M.WC 04:44 | DX: I87.311 Chronic venous hypertension (idiopathic) with ulcer of right lower extremity (principal); L97.811 Non-pressure chronic ulcer of other part of right lower leg limited to breakdown of skin; D69.6 Thrombocytopenia, unspecified; E78.5 Hyperlipidemia, unspecified; G40.909 Epilepsy, unspecified, not intractable, without status epilepticus; I11.0 Hypertensive heart disease with heart failure; I50.22 Chronic systolic (congestive) heart failure; I48.2 Chronic atrial fibrillation; G62.9 Polyneuropathy, unspecified; I25.10 Atherosclerotic heart disease of native coronary artery without angina pectoris; I27.20 Pulmonary hypertension, unspecified; K21.9 Gastro-esophageal reflux disease without esophagitis; N40.1 Benign prostatic hyperplasia with lower urinary tract symptoms; M81.0 Age-related osteoporosis without current pathological fracture; M35.00 Sjogren syndrome, unspecified ==

== ENCOUNTER → 2018-10-05 | Outpatient (CLI) | payer MEDICARE, BC | LOC: M.WC 09:30 | DX: I87.311 Chronic venous hypertension (idiopathic) with ulcer of right lower extremity (principal); L97.811 Non-pressure chronic ulcer of other part of right lower leg limited to breakdown of skin; D69.6 Thrombocytopenia, unspecified; E78.5 Hyperlipidemia, unspecified; G40.909 Epilepsy, unspecified, not intractable, without status epilepticus; G62.9 Polyneuropathy, unspecified; I11.0 Hypertensive heart disease with heart failure; I50.22 Chronic systolic (congestive) heart failure; I48.2 Chronic atrial fibrillation; I27.20 Pulmonary hypertension, unspecified; I25.10 Atherosclerotic heart disease of native coronary artery without angina pectoris; K21.9 Gastro-esophageal reflux disease without esophagitis; N40.1 Benign prostatic hyperplasia with lower urinary tract symptoms; M81.0 Age-related osteoporosis without current pathological fracture; M35.00 Sjogren syndrome, unspecified ==

== ENCOUNTER → 2018-10-07 | Outpatient (CLI) | payer MEDICARE, BC | LOC: M.WC 09:30 | DX: I87.311 Chronic venous hypertension (idiopathic) with ulcer of right lower extremity (principal); L97.811 Non-pressure chronic ulcer of other part of right lower leg limited to breakdown of skin; D69.6 Thrombocytopenia, unspecified; E78.5 Hyperlipidemia, unspecified; I11.0 Hypertensive heart disease with heart failure; I50.22 Chronic systolic (congestive) heart failure; G62.9 Polyneuropathy, unspecified; G40.909 Epilepsy, unspecified, not intractable, without status epilepticus; I48.2 Chronic atrial fibrillation; I27.20 Pulmonary hypertension, unspecified; I25.10 Atherosclerotic heart disease of native coronary artery without angina pectoris; K21.9 Gastro-esophageal reflux disease without esophagitis; M35.00 Sjogren syndrome, unspecified; M81.0 Age-related osteoporosis without current pathological fracture; N40.1 Benign prostatic hyperplasia with lower urinary tract symptoms ==

== ENCOUNTER → 2018-10-14 | Outpatient (CLI) | payer MEDICARE, BC | LOC: M.WC 05:17 | DX: I87.311 Chronic venous hypertension (idiopathic) with ulcer of right lower extremity (principal); L97.811 Non-pressure chronic ulcer of other part of right lower leg limited to breakdown of skin; E78.5 Hyperlipidemia, unspecified; D69.6 Thrombocytopenia, unspecified; G40.909 Epilepsy, unspecified, not intractable, without status epilepticus; I11.0 Hypertensive heart disease with heart failure; I50.22 Chronic systolic (congestive) heart failure; I48.2 Chronic atrial fibrillation; I27.20 Pulmonary hypertension, unspecified; I25.10 Atherosclerotic heart disease of native coronary artery without angina pectoris; G62.9 Polyneuropathy, unspecified; N40.1 Benign prostatic hyperplasia with lower urinary tract symptoms; K21.9 Gastro-esophageal reflux disease without esophagitis; M81.0 Age-related osteoporosis without current pathological fracture; M35.00 Sjogren syndrome, unspecified ==

== ENCOUNTER → 2018-10-22 | Outpatient (CLI) | payer MEDICARE, BC | LOC: M.WC 10-21 09:30 | DX: I87.311 Chronic venous hypertension (idiopathic) with ulcer of right lower extremity (principal); L97.812 Non-pressure chronic ulcer of other part of right lower leg with fat layer exposed; E78.5 Hyperlipidemia, unspecified; D64.9 Anemia, unspecified; G40.909 Epilepsy, unspecified, not intractable, without status epilepticus; G62.9 Polyneuropathy, unspecified; I11.0 Hypertensive heart disease with heart failure; I50.22 Chronic systolic (congestive) heart failure; I25.10 Atherosclerotic heart disease of native coronary artery without angina pectoris; I27.20 Pulmonary hypertension, unspecified; I48.2 Chronic atrial fibrillation; K21.9 Gastro-esophageal reflux disease without esophagitis; M35.00 Sjogren syndrome, unspecified; M81.0 Age-related osteoporosis without current pathological fracture; N40.1 Benign prostatic hyperplasia with lower urinary tract symptoms; F41.9 Anxiety disorder, unspecified ==

== ENCOUNTER → 2018-10-28 | Outpatient (CLI) | payer MEDICARE, BC | LOC: M.WC 05:28 | DX: I87.311 Chronic venous hypertension (idiopathic) with ulcer of right lower extremity (principal); L97.811 Non-pressure chronic ulcer of other part of right lower leg limited to breakdown of skin; E78.5 Hyperlipidemia, unspecified; G40.909 Epilepsy, unspecified, not intractable, without status epilepticus; G62.9 Polyneuropathy, unspecified; I87.2 Venous insufficiency (chronic) (peripheral); I11.0 Hypertensive heart disease with heart failure; I50.22 Chronic systolic (congestive) heart failure; I48.2 Chronic atrial fibrillation; I27.20 Pulmonary hypertension, unspecified; I25.10 Atherosclerotic heart disease of native coronary artery without angina pectoris; K21.9 Gastro-esophageal reflux disease without esophagitis; M81.0 Age-related osteoporosis without current pathological fracture; M35.00 Sjogren syndrome, unspecified; N40.1 Benign prostatic hyperplasia with lower urinary tract symptoms ==

== ENCOUNTER → 2018-11-11 | Outpatient (CLI) | payer MEDICARE, BC | LOC: M.WC 04:58 | DX: I87.311 Chronic venous hypertension (idiopathic) with ulcer of right lower extremity (principal); L97.812 Non-pressure chronic ulcer of other part of right lower leg with fat layer exposed; E78.5 Hyperlipidemia, unspecified; G40.909 Epilepsy, unspecified, not intractable, without status epilepticus; G62.9 Polyneuropathy, unspecified; I11.0 Hypertensive heart disease with heart failure; I50.22 Chronic systolic (congestive) heart failure; I48.2 Chronic atrial fibrillation; I27.20 Pulmonary hypertension, unspecified; I25.10 Atherosclerotic heart disease of native coronary artery without angina pectoris; K21.9 Gastro-esophageal reflux disease without esophagitis; N40.1 Benign prostatic hyperplasia with lower urinary tract symptoms; M35.00 Sjogren syndrome, unspecified; M81.0 Age-related osteoporosis without current pathological fracture ==

== ENCOUNTER → 2018-11-18 | Outpatient (CLI) | payer MEDICARE, BC | LOC: M.WC 04:45 | DX: I87.311 Chronic venous hypertension (idiopathic) with ulcer of right lower extremity (principal); L97.811 Non-pressure chronic ulcer of other part of right lower leg limited to breakdown of skin; I87.2 Venous insufficiency (chronic) (peripheral); I11.0 Hypertensive heart disease with heart failure; I50.22 Chronic systolic (congestive) heart failure; I48.2 Chronic atrial fibrillation; I27.20 Pulmonary hypertension, unspecified; I25.10 Atherosclerotic heart disease of native coronary artery without angina pectoris; D69.6 Thrombocytopenia, unspecified; E78.5 Hyperlipidemia, unspecified; G40.909 Epilepsy, unspecified, not intractable, without status epilepticus; G62.9 Polyneuropathy, unspecified; K21.9 Gastro-esophageal reflux disease without esophagitis; M35.00 Sjogren syndrome, unspecified; M81.0 Age-related osteoporosis without current pathological fracture; N40.1 Benign prostatic hyperplasia with lower urinary tract symptoms ==

== ENCOUNTER → 2018-11-29 | Outpatient (CLI) | payer MEDICARE, BC | LOC: M.WC 04:34 | DX: I87.311 Chronic venous hypertension (idiopathic) with ulcer of right lower extremity (principal); L97.811 Non-pressure chronic ulcer of other part of right lower leg limited to breakdown of skin; E78.5 Hyperlipidemia, unspecified; D69.6 Thrombocytopenia, unspecified; G62.9 Polyneuropathy, unspecified; G40.909 Epilepsy, unspecified, not intractable, without status epilepticus; I11.0 Hypertensive heart disease with heart failure; I50.22 Chronic systolic (congestive) heart failure; I48.2 Chronic atrial fibrillation; I27.20 Pulmonary hypertension, unspecified; I25.10 Atherosclerotic heart disease of native coronary artery without angina pectoris; K21.9 Gastro-esophageal reflux disease without esophagitis; N40.1 Benign prostatic hyperplasia with lower urinary tract symptoms; M81.0 Age-related osteoporosis without current pathological fracture; M35.00 Sjogren syndrome, unspecified ==

== ENCOUNTER → 2018-12-03 | Outpatient (CLI) | payer MEDICARE, BC | LOC: M.WC 11-25 04:47 | DX: I87.311 Chronic venous hypertension (idiopathic) with ulcer of right lower extremity (principal); L97.811 Non-pressure chronic ulcer of other part of right lower leg limited to breakdown of skin; D69.6 Thrombocytopenia, unspecified; E78.5 Hyperlipidemia, unspecified; G40.909 Epilepsy, unspecified, not intractable, without status epilepticus; G62.9 Polyneuropathy, unspecified; I11.0 Hypertensive heart disease with heart failure; I50.22 Chronic systolic (congestive) heart failure; I27.20 Pulmonary hypertension, unspecified; I48.2 Chronic atrial fibrillation; K21.9 Gastro-esophageal reflux disease without esophagitis; N40.1 Benign prostatic hyperplasia with lower urinary tract symptoms; M35.00 Sjogren syndrome, unspecified; M81.0 Age-related osteoporosis without current pathological fracture ==

== ENCOUNTER → 2018-12-09 | Outpatient (CLI) | payer MEDICARE, BC | LOC: M.WC 00:35 | DX: I87.311 Chronic venous hypertension (idiopathic) with ulcer of right lower extremity (principal); L97.811 Non-pressure chronic ulcer of other part of right lower leg limited to breakdown of skin; E78.5 Hyperlipidemia, unspecified; D69.6 Thrombocytopenia, unspecified; G62.9 Polyneuropathy, unspecified; G40.909 Epilepsy, unspecified, not intractable, without status epilepticus; I11.0 Hypertensive heart disease with heart failure; I50.22 Chronic systolic (congestive) heart failure; I48.2 Chronic atrial fibrillation; K21.9 Gastro-esophageal reflux disease without esophagitis; I27.20 Pulmonary hypertension, unspecified; I25.10 Atherosclerotic heart disease of native coronary artery without angina pectoris; M81.0 Age-related osteoporosis without current pathological fracture; M35.00 Sjogren syndrome, unspecified; N40.1 Benign prostatic hyperplasia with lower urinary tract symptoms ==

== ENCOUNTER → 2018-12-16 | Outpatient (CLI) | payer MEDICARE, BC | LOC: M.WC 04:27 | DX: I87.311 Chronic venous hypertension (idiopathic) with ulcer of right lower extremity (principal); L97.511 Non-pressure chronic ulcer of other part of right foot limited to breakdown of skin; D69.6 Thrombocytopenia, unspecified; E78.5 Hyperlipidemia, unspecified; I11.0 Hypertensive heart disease with heart failure; I50.22 Chronic systolic (congestive) heart failure; I48.2 Chronic atrial fibrillation; I27.20 Pulmonary hypertension, unspecified; I25.10 Atherosclerotic heart disease of native coronary artery without angina pectoris; G40.909 Epilepsy, unspecified, not intractable, without status epilepticus; G62.9 Polyneuropathy, unspecified; K21.9 Gastro-esophageal reflux disease without esophagitis; M81.0 Age-related osteoporosis without current pathological fracture; M35.00 Sjogren syndrome, unspecified; N40.1 Benign prostatic hyperplasia with lower urinary tract symptoms ==

== ENCOUNTER → 2018-12-23 | Outpatient (CLI) | payer MEDICARE, BC | LOC: M.WC 04:44 | DX: I87.311 Chronic venous hypertension (idiopathic) with ulcer of right lower extremity (principal); L97.811 Non-pressure chronic ulcer of other part of right lower leg limited to breakdown of skin; I25.10 Atherosclerotic heart disease of native coronary artery without angina pectoris; I48.2 Chronic atrial fibrillation; I50.22 Chronic systolic (congestive) heart failure; N40.1 Benign prostatic hyperplasia with lower urinary tract symptoms; K21.9 Gastro-esophageal reflux disease without esophagitis; E78.5 Hyperlipidemia, unspecified; M81.0 Age-related osteoporosis without current pathological fracture; I27.20 Pulmonary hypertension, unspecified; G62.9 Polyneuropathy, unspecified; Z68.32 Body mass index [BMI] 32.0-32.9, adult; Z79.01 Long term (current) use of anticoagulants ==

== ENCOUNTER → 2018-12-30 | Outpatient (CLI) | payer MEDICARE, BC | LOC: M.WC 05:09 | DX: I87.311 Chronic venous hypertension (idiopathic) with ulcer of right lower extremity (principal); L97.818 Non-pressure chronic ulcer of other part of right lower leg with other specified severity; D69.6 Thrombocytopenia, unspecified; E78.5 Hyperlipidemia, unspecified; G40.909 Epilepsy, unspecified, not intractable, without status epilepticus; G62.9 Polyneuropathy, unspecified; I11.0 Hypertensive heart disease with heart failure; I50.22 Chronic systolic (congestive) heart failure; I25.10 Atherosclerotic heart disease of native coronary artery without angina pectoris; I48.2 Chronic atrial fibrillation; I27.20 Pulmonary hypertension, unspecified; K21.9 Gastro-esophageal reflux disease without esophagitis; M81.0 Age-related osteoporosis without current pathological fracture; M35.00 Sjogren syndrome, unspecified; N40.1 Benign prostatic hyperplasia with lower urinary tract symptoms ==

== ENCOUNTER → 2019-02-15 | Outpatient (CLI) | payer MEDICARE, BC ==
[~2019-02-15] VITALS: Ht 177.8 cm; Wt 103.0 kg
[2019-02-15 12:10] LABS: HEMATOCRIT 33.6 % (42.0-52.0); HEMOGLOBIN 11.3 gm/dL (14.0-18.0); MCH 31.8 pg (26.0-34.0); MCHC 33.6 g/dL (28.0-37.0); MCV 94.6 fL (80.0-100.0); MPV 8.9 fl. (7.2-11.1); RBC 3.56 mil/uL (4.50-6.00); RDW-CV 15.4 % (10.5-14.5); WBC 5.8 thou/uL (4.0-11.0)
[2019-02-15 12:18] LABS: ANION GAP 5 mmol/L (7-16); BUN 24 mg/dL (7-18); CHLORIDE 104 mmol/L (98-107); CO2 30 mmol/L (21-32); GLUCOSE 101 mg/dL (70-99); INR 1.1; POTASSIUM 3.8 mmol/L (3.5-5.1); PROTIME 11.6 Seconds (9.20-11.50); SODIUM 139 mmol/L (136-145)
[2019-02-15 12:22] LABS: ALBUMIN 3.4 g/dL (3.4-5.0); ALKALINE PHOSPHATASE 53 U/L (46-116); CHOLESTEROL 156 mg/dL (<200); HDL CHOLESTEROL 57 mg/dL (>40); LDL CHOLESTEROL 82 mg/dL (<100); SGOT 19 U/L (15-37); SGPT 24 U/L (30-65); TC:HDL 2.7 Ratio (Not establshd); TOTAL BILIRUBIN 0.7 mg/dL (<0.1-1.0); TOTAL PROTEIN 7.8 g/dL (6.4-8.2); TRIGLYCERIDE 89 mg/dL (<150); VLDL 18 mg/dL (<40)
[2019-02-15 12:26] VITALS: BP 136/65
[2019-02-15 12:30] LABS: SERUM ASSESSMENT Clear
--- NOTE | 2019-02-15 13:01 | EKG ---
[place] [address] ELECTROCARDIOGRAM REPORT Name: DIANA MORTENSEN Room: [facility]#: [id number] Admission: 02/15/19 Attend Phys: Kameron Mane MD Discharge: Date of : 38 Report #: [id number] THIS REPORT FOR: //name// [facility] Test Date: 2019-02-15 Test Time: 12:15:38 Pat Name: DINAA SANTILLANJASON Department: Room: Gender: Bellmaker: : 1940 Requested By: Kameron Mane Order Number: [id number] Reading MD: Kameron Mane Measurements Intervals [place] Rate: 54 P: [place]: QRS: -53 QRSD: 142 T: 111 QT: 428 QTc: 406 Interpretive Statements Atrial fibrillation Premature ventricular contractions Left bundle branch block Compared to ECG 03/12/2018 09:34:32 Ventricular premature complex(es) now present Electronically Signed On 02-15-2019 13:00:58 CDT by Kameron Mane [email or web address] <ELECTRONICALLY SIGNED> By: Kameron Mane MD, [facility] 02/15/19 1300 14 14 Kameron Mane MD, FAC /EPI
[2019-02-15 14:21] VITALS: BP 125/69
[2019-02-15 15:03] VITALS: BP 117/55
[2019-02-15 15:15] VITALS: BP 119/76
[2019-02-15 15:30] VITALS: BP 107/59
[2019-02-15 15:34] VITALS: BP 109/57
--- NOTE | 2019-02-15 16:14 | EKG ---
[place] [address] ELECTROCARDIOGRAM REPORT Name: DIANA MORTENSEN Room: [facility]#: [id number] Admission: 02/15/19 Attend Phys: Kameron Mane MD Discharge: Date of : 38 Report #: [id number] THIS REPORT FOR: //name// [facility] Test Date: 2019-02-15 Test Time: 15:04:27 Pat Name: DIANA MORTENSEN Department: Room: Gender: Game Engineer: : 1940 Requested By: Kameron Mane Order Number: [id number] Shannon MD: Bert Hunt Measurements Intervals [place] Rate: 61 P: 0 TN: 253 QRS: -50 QRSD: 190 T: -51 QT: 499 QTc: 503 Interpretive Statements Ventricular-paced complexes No further analysis attempted due to paced rhythm Compared to ECG 02/15/2019 12:15:38 Rhythm is exclusively paced Electronically Signed On 02-15-2019 16:14:05 CDT by Bert Hunt [email or web address] <ELECTRONICALLY SIGNED> By: Bert Hunt MD, [facility] 02/15/19 1614 1504 1504 Bert Hunt MD, [facility] /EPI
--- NOTE | 2019-02-21 15:26 | CARD ---
[address] [address] CARDIAC CATH REPORT Name: DIANA MORTENSEN Room: [facility] [place]#: [id number] Admission: 02/15/19 Attend Phys: Kameron Mane MD Discharge: Date of : 38 Report #: [id number] THIS REPORT FOR: //name// APPROVED REPORT Study performed: 02/15/2019 12:58:22 Patient Status: Out-Patient Room #: Exam: Insertion of Single Chamber Permanent Pacemaker Indications: atrial fibrillation with slow ventricular response rate. The patient is a 78 year-old male with a history of atrial fibrillation. Implanted Devices: Biotronik Eluna 8 SRT, model #873801, serial number is [id number] single-chamber pulse generator. Biotronik Solia S 60, model #926306, serial #[id number] or [id number] right ventricular lead. Procedure The patient underwent informed consent. We discussed the details of the procedure including the risks, which include, but not limited to bleeding, infection, vascular damage, cardiac perforation, and pneumothorax. After informed consent was obtained the patient was brought to the interventional radiology lab. The area of the left chest was prepped and draped in sterile fashion. Local anesthesia was achieved with 1% lidocaine. Next after an initial incision was made a device pocket was formed over the left pectoralis muscle using electrocautery and blunt dissection. The left subclavian vein was accessed with the micropuncture kit after a peripheral injection of 10 mL of contrast dye. Ultimately a safety J guidewire was advanced to the area of the right atrium under fluoroscopic guidance. The tear-away introducer was advanced over the guidewire. The dilator and guidewire were removed and a ventricular lead advanced to a secure position along the right ventricular septum. The lead was actively fixed. Tear-away introducer was removed. Sensing was checked and deemed to be satisfactory. Threshold was checked and it to be satisfactory. Pacing impedance was within normal limits. After adequate slack was assured and the lead and the lead was then secured within the device pocket using the designated cuff and 0 silk suture. The pocket was then flushed with antibiotic solution. Next the ventricular lead was attached to a single chamber pulse generator. The pulse generator and redundant wire were then placed [place] [address] CARDIAC CATH REPORT Name: GOLDIE MORTENSENMONA SALAZAR Room: [facility]#: [id number] Admission: 02/15/19 Attend Phys: Kameron Mane MD Discharge: Date of : 38 Report #: [id number] tissues were closed with interrupted stitches of 2-0 Vicryl. The skin incision was then closed with a single subcuticular stitch of 4-0 Vicryl. Several Steri-Strips were placed across the incision. A sterile Telfa dressing was then covered with Tegaderm. The patient tolerated procedure well without complication. Electrode Parameters R Wave: 10.1 mV Ventricular Threshold: 738 ohms Ventricular Resistance: 0.9 V at 0.40 ms Conclusion 1. Atrial fibrillation with slow ventricular response rate. 2. Successful placement of a single-chamber pacemaker. Recommendations 1. Follow-up site check in one week. 2. Follow-up device interrogation one month. <ELECTRONICALLY SIGNED> By: Kameron Mane MD, FACC 02/21/19 1525 1525 1525Michaejyoti Mane MD, FACC /INF
== END | disposition home or self-care (01) ==
LOC: M.CL 11:21
PROVIDERS: Internal Medicine Cardiovascular Disease
DX: I48.91 Unspecified atrial fibrillation (principal); I50.9 Heart failure, unspecified; M19.90 Unspecified osteoarthritis, unspecified site; Z98.890 Other specified postprocedural states; Z79.01 Long term (current) use of anticoagulants; Z79.82 Long term (current) use of aspirin; Z79.899 Other long term (current) drug therapy

== ENCOUNTER 2019-04-01 14:47 | Emergency (ER) | payer MEDICARE, BC ==
[~2019-04-01] VITALS: Ht 177.8 cm; Wt 103.9 kg
[2019-04-01 16:06] VITALS: BP 105/63
== END 2019-04-01 16:06 | disposition home or self-care (01) ==
LOC: M.ERS 14:47
DX: M25.551 Pain in right hip (principal); M19.90 Unspecified osteoarthritis, unspecified site; I48.91 Unspecified atrial fibrillation; I50.9 Heart failure, unspecified

== ENCOUNTER → 2019-05-27 | Outpatient (CLI) | payer MEDICARE, BC | LOC: M.ULTRA 07:59 | DX: R16.0 Hepatomegaly, not elsewhere classified (principal); R17 Unspecified jaundice ==

== ENCOUNTER 2019-10-11 10:50 | Inpatient (IN) | payer MEDICARE, BC ==
[~2019-10-11] VITALS: Ht 177.8 cm; Wt 103.2 kg
[~2019-10-11 10:50] MED LIST changes: -PRILOSEC 20 MG20 MG PO; +PRILOSEC OTC20 MG PO
[2019-10-11 11:07] VITALS: BP 101/48
[2019-10-11 11:14] LABS: HEMOGLOBIN 11.3 gm/dL (14.0-18.0); MCH 32.1 pg (26.0-34.0); MCHC 34.2 g/dL (28.0-37.0); MPV 8.9 fl. (7.2-11.1); NUCLEATED RBCS 0 /100WBC; PLATELET COUNT* 145 thou/uL (150-400); RBC 3.51 mil/uL (4.50-6.00); WBC 8.9 thou/uL (4.0-11.0)
[2019-10-11 11:25] LABS: CALCIUM 8.1 mg/dL (8.5-10.1); CREATININE 1.4 mg/dL (0.6-1.3); POTASSIUM 3.9 mmol/L (3.5-5.1)
[2019-10-11 11:30] LABS: INFLUENZA A ANTIGEN Negative (Negative); INFLUENZA B ANTIGEN Negative (Negative)
[2019-10-11 11:30] LABS: ALBUMIN 3.2 g/dL (3.4-5.0); TOTAL BILIRUBIN 0.7 mg/dL (<0.1-1.0); TOTAL PROTEIN 7.9 g/dL (6.4-8.2)
[2019-10-11 11:35] LABS: ABSOLUTE BASOPHILS 0.1 thou/uL (0.0-0.2); ABSOLUTE LYMPHOCYTES 0.8 thou/uL (0.8-5.3)
[2019-10-11 11:36] LABS: PLATELET ESTIMATE DECREASED
[2019-10-11 11:38] LABS: HYPOCHROMASIA 1+
[2019-10-11 14:35] LABS: URINE BILIRUBIN NEGATIVE (Negative); URINE BLOOD TRACE (Negative); URINE CLARITY CLEAR; URINE COLOR YELLOW; URINE GLUCOSE-RANDOM NEGATIVE (Negative); URINE KETONES NEGATIVE (Negative); URINE LEUKOCYTES-REFLEX NEGATIVE (Negative); URINE NITRITE-REFLEX NEGATIVE (Negative); URINE PROTEIN NEGATIVE (Negative); URINE UROBILINOGEN 0.2 E.U./dl (0.2-1.0)
--- NOTE | 2019-10-11 17:13 | EKG ---
[place] [address] ELECTROCARDIOGRAM REPORT Name: DIANA MORTENSEN Room: [place] [address] ADM IN .R.#: [id number] Admission: 10/11/19 Attend Phys: Sheng Lamas Discharge: Date of : 38 Report #: [id number] THIS REPORT FOR: //name// [facility] Test Date: 2019-10-11 Test Time: 11:02:28 Pat Name: DIANA MORTENSEN Department: Room: [place] [address] Gender: M Base Brander: [facility] : 1940 Requested By: Janeth Martinez Order Number: [id number] Shannon MD: Dat Forman Measurements Intervals [place] Rate: 83 P: [place]: QRS: -72 QRSD: 150 T: 105 QT: 398 QTc: 468 Interpretive Statements Afib and V-paced complexes left axis and RBBB No further analysis attempted due to paced rhythm Compared to ECG 02/15/2019 15:04:27 No significant changes Electronically Signed On 10-11-2019 17:12:54 INVASIVE PHYSICIAN by Dat Forman [email or web address] <ELECTRONICALLY SIGNED> By: Dat Forman MD, FAC 10/11/19 1712 1102 1102 Dat oFrman MD, [facility] /EPI
[2019-10-11 17:16] VITALS: BP 86/39
[2019-10-11 18:40] VITALS: BP 124/49
[2019-10-12] VITALS: BP 101/55
[2019-10-12 04:00] VITALS: BP 91/46
[2019-10-12 08:30] VITALS: BP 108/68
[2019-10-12 12:12] LABS: INR 1.9; PROTIME 19.4 Seconds (9.20-11.50)
[2019-10-12 12:16] LABS: CALCIUM 8.2 mg/dL (8.5-10.1); CREATININE 1.3 mg/dL (0.6-1.3); POTASSIUM 3.5 mmol/L (3.5-5.1)
[2019-10-12 12:56] VITALS: BP 106/64
--- NOTE | 2019-10-12 13:23 | 2DMMODE ---
[place] [address] 2 D/M-MODE ECHOCARDIOGRAM Name: DIANA MORTENSEN Room: [address] IN M.R.#: [id number] Admission: 10/11/19 Attend Phys: Sheng carter Sa Discharge: Date of : 38 Date of Service: 10/12/19 1323 Report #: [id number] THIS REPORT FOR: //name// APPROVED REPORT Study performed: 10/12/2019 10:26:21 EXAM: Comprehensive 2D, Doppler, and color-flow Echocardiogram Patient Location: Bedside BSA: 2.17 HR: 82 bpm BP: 91/46 mmHg Other Information Study Quality: Good Indications Atrial Fibrillation 2D Dimensions IVSd: 12.21 (7-11mm) LVOT Diam: 22.00 (18-24mm) LVDd: 53.14 mm PWd: 10.79 (7-11mm) Ascending Ao: 38.00 (22-36mm) LVDs: 46.29 (25-40mm) Aortic Root: 33.84 mm Volumes Left Atrial Volume (Systole) LA ESV Index: 57.80 mL/m2 Aortic Valve AoV Peak Caesar.: 1.25 m/s AO Peak Gr.: 6.26 mmHg LVOT Max P.92 mmHg AO Mean Gr.: 3.81 mmHg LVOT Mean P.88 mmHg LVOT Max V: 0.99 m/s AO V2 VTI: 18.81 cm LVOT Mean V: 0.63 m/s CHARLA (VTI): 3.01 cm2 LVOT V1 VTI: 14.88 cm Mitral Valve E/A Ratio: 3.97 MV Decel. Time: 120.17 ms MV E Max Caesar.: 0.85 m/s MV PHT: 34.85 ms MVA (PHT): 6.31 [place] [address] 2 D/M-MODE ECHOCARDIOGRAM Name: DIANA MORTENSEN Room: [address] IN .R.#: [id number] Admission: 10/11/19 Attend Phys: Sheng carter Sa Discharge: Date of : 36 Date of Service: 10/12/19 1323 Report #: [id number] TDI E/Lateral E': 4.25 E/Medial E': 9.44 Medial E' Caesar.: 0.09 m/s Lateral E' Caesar.: 0.20 m/s Pulmonary Valve PV Peak Caesar.: 0.99 m/s PV Peak Gr.: 3.94 mmHg Tricuspid Valve RAP Estimate: 20.00 mmHg TR Peak Gr.: 48.19 mmHg RVSP: 68.19 mmHg PA Pressure: 68.19 mmHg Left Ventricle Left ventricle is mildly dilated. There is global hypokinesis of the left ventricle. paradoxical motion consistent with LBBB There is normal left ventricular wall thickness. Left ventricular systolic function is severely decreased. LVEF is 20-25%. Right Ventricle The right ventricle is normal size. The right ventricular systolic function is normal. Pacemaker lead is present in the right ventricle. Atria Left atrium is severely dilated. Right atrium is dilated. Aortic Valve The aortic valve is normal in structure. No aortic regurgitation is present. There is no aortic valvular stenosis. Mitral Valve The mitral valve is normal in structure. Trace mitral regurgitation. No evidence of mitral valve stenosis. Tricuspid Valve The tricuspid valve is normal in structure. Moderate tricuspid regurgitation. estimated pa pressure 55 mm Hg Pulmonic Valve The pulmonary valve is normal in structure. Trace pulmonic regurgitation. Great Vessels Aortic root is mildly dilated. [place] [address] 2 D/M-MODE ECHOCARDIOGRAM Name: DIANA MORTENSEN Room: [address] IN [facility]#: [id number] Admission: 10/11/19 Attend Phys: Sheng carter Sa Discharge: Date of : 36 Date of Service: 10/12/19 1323 Report #: [id number] Pericardium There is no pericardial effusion. <Conclusion> LVEF is 20-25%. Left atrium is severely dilated. Moderate tricuspid regurgitation. estimated pa pressure 55 mm Hg <ELECTRONICALLY SIGNED> By: Dat Forman MD, FACC 10/12/19 1323 22 22 Dat Forman MD, FACC /INF
[2019-10-12 17:02] VITALS: BP 104/61
[2019-10-12 20:00] VITALS: BP 110/63
[2019-10-13] VITALS: BP 92/50
[2019-10-13 04:00] VITALS: BP 105/61
[2019-10-13 06:06] LABS: INR 2.3; PROTIME 22.6 Seconds (9.20-11.50)
[2019-10-13 08:00] VITALS: BP 130/58
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
[2019-10-13] MEDS ORDERED: TYLENOL325 M1 PO (10:14)
[2019-10-13 11:00] VITALS: BP 118/55
[2019-10-13 12:00] VITALS: BP 103/68
== END 2019-10-13 14:00 | disposition home or self-care (01) | DRG 683 ==
LOC: M.ERS 10:50 → M.TBA-ER 13:09 → M.2W 13:09 → M.TBA-ER 13:09 → M.2W 18:56
PROVIDERS: Internal Medicine Cardiovascular Disease; Physician Assistant; ADMIT Family Medicine
DX: N17.9 Acute kidney failure, unspecified (principal); I13.0 Hypertensive heart and chronic kidney disease with heart failure and stage 1 through stage 4 chronic kidney disease, or unspecified chronic kidney disease; D68.59 Other primary thrombophilia; I50.22 Chronic systolic (congestive) heart failure; I42.9 Cardiomyopathy, unspecified; I95.2 Hypotension due to drugs; N18.3 Chronic kidney disease, stage 3 (moderate); M19.92 Post-traumatic osteoarthritis, unspecified site; I48.91 Unspecified atrial fibrillation; M35.00 Sjogren syndrome, unspecified; I34.0 Nonrheumatic mitral (valve) insufficiency; G40.909 Epilepsy, unspecified, not intractable, without status epilepticus; I27.20 Pulmonary hypertension, unspecified; I49.5 Sick sinus syndrome; T50.905A Adverse effect of unspecified drugs, medicaments and biological substances, initial encounter; Z95.0 Presence of cardiac pacemaker; Z79.82 Long term (current) use of aspirin; Z79.899 Other long term (current) drug therapy; Z79.01 Long term (current) use of anticoagulants; Z91.048 Other nonmedicinal substance allergy status; Z98.1 Arthrodesis status; Z90.89 Acquired absence of other organs; Z82.49 Family history of ischemic heart disease and other diseases of the circulatory system; Y92.89 Other specified places as the place of occurrence of the external cause; Z23 Encounter for immunization

== ENCOUNTER → 2020-04-24 | Outpatient (CLI) | payer MEDICARE, BC ==
[~2020-04-24] MED LIST changes: +TYLENOL325 M1 PO
[2020-04-24 11:08] LABS: CALCIUM 9.2 mg/dL (8.5-10.1); CREATININE 1.2 mg/dL (0.6-1.3); POTASSIUM 3.7 mmol/L (3.5-5.1)
== END ==
LOC: M.WC 09:00 → M.LAB 09:35 → M.WC 10:00
PROVIDERS: ATTEND Emergency Medicine Undersea and Hyperbaric Medicine
DX: L97.811 Non-pressure chronic ulcer of other part of right lower leg limited to breakdown of skin (principal); I87.2 Venous insufficiency (chronic) (peripheral); I48.20 Chronic atrial fibrillation, unspecified; I11.0 Hypertensive heart disease with heart failure; I50.9 Heart failure, unspecified; G40.909 Epilepsy, unspecified, not intractable, without status epilepticus; K21.9 Gastro-esophageal reflux disease without esophagitis; E78.5 Hyperlipidemia, unspecified; M81.0 Age-related osteoporosis without current pathological fracture; G62.9 Polyneuropathy, unspecified; M35.00 Sjogren syndrome, unspecified; Z98.49 Cataract extraction status, unspecified eye; Z79.01 Long term (current) use of anticoagulants; Z79.82 Long term (current) use of aspirin; Z95.0 Presence of cardiac pacemaker; Z90.89 Acquired absence of other organs

== ENCOUNTER → 2020-05-01 | Outpatient (CLI) | payer MEDICARE, BC | LOC: M.WC 02:27 | PROVIDERS: ATTEND Emergency Medicine Undersea and Hyperbaric Medicine | DX: L97.811 Non-pressure chronic ulcer of other part of right lower leg limited to breakdown of skin (principal); I87.2 Venous insufficiency (chronic) (peripheral); I48.20 Chronic atrial fibrillation, unspecified; I50.9 Heart failure, unspecified; I73.9 Peripheral vascular disease, unspecified; E78.5 Hyperlipidemia, unspecified; D69.6 Thrombocytopenia, unspecified; G62.9 Polyneuropathy, unspecified; G40.909 Epilepsy, unspecified, not intractable, without status epilepticus; I27.20 Pulmonary hypertension, unspecified; K21.9 Gastro-esophageal reflux disease without esophagitis; M81.0 Age-related osteoporosis without current pathological fracture; M35.00 Sjogren syndrome, unspecified; M48.00 Spinal stenosis, site unspecified ==

== ENCOUNTER 2020-08-02 23:27 | Observation (INO) | payer MEDICARE, BC ==
[~2020-08-02] VITALS: Ht 177.8 cm; Wt 98.9 kg
[2020-08-02 23:29] VITALS: BP 114/68
[2020-08-02] MEDS ORDERED: ASA81BEC PO (23:59)
[2020-08-03 00:07] LABS: HEMATOCRIT 34.7 % (42.0-52.0); HEMOGLOBIN 11.6 gm/dL (14.0-18.0); MCH 31.9 pg (26.0-34.0); MCHC 33.6 g/dL (28.0-37.0); MPV 8.4 fl. (7.2-11.1); RBC 3.65 mil/uL (4.50-6.00); RDW-CV 13.4 % (10.5-14.5); WBC 11.1 thou/uL (4.0-11.0)
[2020-08-03 00:22] LABS: CALCIUM 8.6 mg/dL (8.5-10.1); CREATININE 1.4 mg/dL (0.6-1.3); POTASSIUM 3.7 mmol/L (3.5-5.1)
[2020-08-03 00:24] LABS: INR 2.9; PROTIME 28.6 Seconds (9.20-11.50)
[2020-08-03 00:26] LABS: ALBUMIN 3.3 g/dL (3.4-5.0); TOTAL BILIRUBIN 0.3 mg/dL (<0.1-1.0)
[2020-08-03 00:58] LABS: URINE BILIRUBIN NEGATIVE (Negative); URINE BLOOD NEGATIVE (Negative); URINE CLARITY CLEAR; URINE COLOR YELLOW; URINE GLUCOSE-RANDOM NEGATIVE (Negative); URINE KETONES NEGATIVE (Negative); URINE LEUKOCYTES-REFLEX NEGATIVE (Negative); URINE NITRITE-REFLEX NEGATIVE (Negative); URINE PROTEIN NEGATIVE (Negative); URINE SPECIFIC GRAVITY 1.015 (1.005-1.030); URINE UROBILINOGEN 0.2 E.U./dl (0.2-1.0)
[2020-08-03 03:19] VITALS: BP 136/72
[2020-08-03 03:20] VITALS: BP 111/63
--- NOTE | 2020-08-03 07:43 | NUR ---
ASSUMED CARE OF PATIENT AT APPROX 0310. PT A&OX4, VSS ON ROOM AIR, PAIN MEDS REQUESTED AND GIVEN ORDERED, PT SLEPT WITHOUT S/SX OF DISCOMFORT. REPORT GIVEN AND CARE TRANSFERED TO DAY SHIFT NURSE AT APPROX 0720.
[2020-08-03] MEDS ORDERED: WARFARIN SODIUM3 MG PO (08:10)
[2020-08-03] MEDS ORDERED: WARFARIN SODIUM1 MG PO (08:12)
[2020-08-03 08:23] VITALS: BP 121/67
[2020-08-03 14:34] VITALS: BP 121/67
--- NOTE | 2020-08-03 16:13 | NUR ---
PT TO DISCHARGE HOME. COPY OF DISCHARGE PAPERWORK TO PT WITH EXPLAINATION. PT VERBALIZED UNDERSTANDING. NO NEW PRESCRIPTIONS. IV ACCESS REMOVED.
[2020-08-03 17:01] VITALS: BP 121/67
== END 2020-08-03 17:02 | disposition home or self-care (01) ==
LOC: M.ERS 23:27 → M.TBA-ER 08-03 01:44 → M.3W 08-03 03:08
PROVIDERS: Personal Emergency Response Attendant; ADMIT Internal Medicine; ATTEND Internal Medicine
DX: M70.62 Trochanteric bursitis, left hip (principal); M19.90 Unspecified osteoarthritis, unspecified site; I48.91 Unspecified atrial fibrillation; I50.9 Heart failure, unspecified; G40.909 Epilepsy, unspecified, not intractable, without status epilepticus; M54.10 Radiculopathy, site unspecified; Z79.899 Other long term (current) drug therapy; Z20.828 Contact with and (suspected) exposure to other viral communicable diseases

== ENCOUNTER 2020-11-12 09:21 | Emergency (ER) | payer MEDICARE, BC ==
[~2020-11-12] VITALS: Ht 177.8 cm; Wt 98.9 kg
[~2020-11-12 09:21] MED LIST changes: +ASA81BEC PO; +WARFARIN SODIUM1 MG PO; +WARFARIN SODIUM3 MG PO
[2020-11-12] MEDS ORDERED: COZAAR 25 MG TA25 M1 PO (09:44)
[2020-11-12 09:55] LABS: ABSOLUTE EOSINOPHILS 0.2 thou/uL (0.0-0.7); ABSOLUTE LYMPHOCYTES 1.5 thou/uL (0.8-5.3); ABSOLUTE MONOCYTES 0.7 thou/uL (0.0-1.2); ABSOLUTE NEUTROPHILS 4.8 thou/uL (1.6-8.1); BASOPHILS 0.3 %; EOSINOPHILS 2.1 %; HEMATOCRIT 36.6 % (42.0-52.0); LYMPHOCYTES 21.1 %; MCH 30.6 pg (26.0-34.0); MCHC 32.9 g/dL (28.0-37.0); MCV 92.8 fL (80.0-100.0); MONOCYTES 9.4 %; MPV 8.1 fl. (7.2-11.1); NUCLEATED RBCS 0 /100WBC; PLATELET COUNT* 226 thou/uL (150-400); POLYS 67.1 %; RBC 3.94 mil/uL (4.50-6.00); RDW-CV 14.2 % (10.5-14.5); WBC 7.2 thou/uL (4.0-11.0)
[2020-11-12 10:03] LABS: CALCIUM 9.5 mg/dL (8.5-10.1); CREATININE 1.2 mg/dL (0.6-1.3); POTASSIUM 3.6 mmol/L (3.5-5.1)
[2020-11-12 10:14] LABS: ALBUMIN 3.4 g/dL (3.4-5.0); TOTAL BILIRUBIN 0.5 mg/dL (<0.1-1.0); TOTAL PROTEIN 7.9 g/dL (6.4-8.2)
[2020-11-12 10:59] VITALS: BP 106/59
--- NOTE | 2020-11-12 16:18 | EKG ---
[place] [address] ELECTROCARDIOGRAM REPORT Name: DIANA MORTENSEN Room: [facility]#: [id number] Admission: 11/12/20 Attend Phys: Discharge: 11/12/20 Date of : 36 Date of Service: 11/12/20 0940 Report #: [id number] THIS REPORT FOR: //name// ED Test Date: 2020-11-12 Test Time: 09:40:18 Pat Name: DIANARomina MORTENSEN Department: Room: Gender: M Physiotherapy Assistant: : 1940 Requested By: Orestes Clayton Order Number: [id number] MD: Dat Forman Measurements Intervals [place] Rate: 71 P: 0 CO: 132 QRS: -71 QRSD: 211 T: 109 QT: 499 QTc: 543 Interpretive Statements ventricular paced beats noted Artifact in lead(s) I,II,aVR,aVL,V1,V2,V3,V4,V5,V6 and baseline wander in lead(s) II,III,aVF Compared to ECG 10/11/2019 11:02:28 intrinsic beats no longer noted Electronically Signed On 11-12-2020 16:18:29 UNDERBASTER by Dat Forman [email or web address] <ELECTRONICALLY SIGNED> By: Dat Forman MD, [facility] 11/12/20 1618 Dat Forman MD, [facility] /EPI
== END 2020-11-12 11:00 | disposition home or self-care (01) ==
LOC: M.ERS 09:21
PROVIDERS: Emergency Medicine
DX: R06.02 Shortness of breath (principal); Z20.822 Contact with and (suspected) exposure to COVID-19; M19.90 Unspecified osteoarthritis, unspecified site; I48.91 Unspecified atrial fibrillation; I50.9 Heart failure, unspecified; Z88.8 Allergy status to other drugs, medicaments and biological substances

== ENCOUNTER → 2020-12-18 | Outpatient (CLI) | payer MEDICARE, BC ==
[~2020-12-18] MED LIST changes: +COZAAR 25 MG TA25 M1 PO
--- NOTE | 2020-12-18 10:31 | 2DMMODE ---
[place] [address] 2 D/M-MODE ECHOCARDIOGRAM Name: KELLYJASONDIANAMONA SALAZAR Room: [facility].#: [id number] Admission: 12/18/20 Attend Phys: Kameron Mane, Discharge: Date of : 36 Date of Service: 12/18/20 1030 Report #: [id number] THIS REPORT FOR: cc: Micki Henriquez Kathleen M. DO Liston, Michael J. MD [facility] ~ APPROVED REPORT Study performed: 12/18/2020 08:52:10 EXAM: Comprehensive 2D, Doppler, and color-flow Echocardiogram Patient Location: Out-Patient BSA: 2.17 HR: 78 bpm BP: 126/62 mmHg Other Information Study Quality: Good Indications Congestive Heart Failure Cardiomyopathy 2D Dimensions IVSd: 11.44 (7-11mm) LVOT Diam: 20.92 (18-24mm) LVDd: 58.78 mm PWd: 11.27 (7-11mm) Ascending Ao: 38.06 (22-36mm) LVDs: 48.81 (25-40mm) Aortic Root: 35.69 mm Volumes Left Atrial Volume (Systole) LA ESV Index: 46.70 mL/m2 Aortic Valve AoV Peak Caesar.: 1.17 m/s AO Peak Gr.: 5.51 mmHg LVOT Max P.13 mmHg AO Mean Gr.: 2.95 mmHg LVOT Mean P.28 mmHg LVOT Max V: 0.88 m/s AO V2 VTI: 20.54 cm LVOT Mean V: 0.50 m/s CHARLA (VTI): 2.67 cm2 LVOT V1 VTI: 15.[place] [address] 2 D/M-MODE ECHOCARDIOGRAM Name: DIANA MORTENSEN Room: [facility]#: [id number] Admission: 12/18/20 Attend Phys: Kameron Mane, Discharge: Date of : 36 Date of Service: 12/18/20 1030 Report #: [id number] E/A Ratio: 3.41 MV Decel. Time: 171.97 ms MV E Max Caesar.: 0.73 m/s MV PHT: 49.87 ms MVA (PHT): 4.41 cm2 TDI E/Lateral E': 4.56 E/Medial E': 10.43 Medial E' Caesar.: 0.07 m/s Lateral E' Caesar.: 0.16 m/s Pulmonary Valve PV Peak Caesar.: 0.85 m/s PV Peak Gr.: 2.91 mmHg Tricuspid Valve RAP Estimate: 5.00 mmHg TR Peak Gr.: 31.92 mmHg RVSP: 36.92 mmHg PA Pressure: 36.92 mmHg Left Ventricle Left ventricle is mildly dilated. There is global hypokinesis noted. There is also left ventricular systolic dyssynergy consistent with underlying bundle branch block or paced rhythm. There is normal left ventricular wall thickness. Left ventricular systolic function is severely decreased. LVEF is 25-30%. Transmitral Doppler flow pattern suggests restrictive physiology. Right Ventricle The right ventricle is normal size. The right ventricular systolic function is normal. Pacemaker lead is present in the right ventricle. Atria Left atrium is moderately dilated. Right atrium is moderately dilated. Aortic Valve The aortic valve is normal in structure. Trace to mild aortic regurgitation. There is no aortic valvular stenosis. Mitral Valve The mitral valve is normal in structure. Mild mitral regurgitation. No evidence of mitral valve stenosis. Tricuspid Valve The tricuspid valve is normal in structure. Mild tricuspid regurgitation. The RVSP is 40-[place] [address] 2 D/M-MODE ECHOCARDIOGRAM Name: DIANA MORTENSEN Room: [facility]#: [id number] Admission: 12/18/20 Attend Phys: Kameron Mane, Discharge: Date of : 36 Date of Service: 12/18/20 1030 Report #: [id number] Pulmonic Valve The pulmonary valve is normal in structure. Mild pulmonic regurgitation. Great Vessels The aortic root is normal in size. The inferior vena cava is not well visualized. Pericardium There is no pericardial effusion. <Conclusion> Left ventricle is mildly dilated. There is normal left ventricular wall thickness. Left ventricular systolic function is severely decreased. LVEF is 25-30%. Transmitral Doppler flow pattern suggests restrictive physiology. There is global hypokinesis noted. There is also left ventricular systolic dyssynergy consistent with underlying bundle branch block or paced rhythm. Left atrium is moderately dilated. Right atrium is moderately dilated. Mild mitral regurgitation. Mild mitral regurgitation. Mild tricuspid regurgitation. The RVSP is 40-45 mmHg. Mild pulmonic regurgitation. Pacemaker lead is present in the right ventricle. <ELECTRONICALLY SIGNED> By: Kameron Mane MD, FACC 12/18/20 1030 1030 1030 Kameron Mane MD, FACC /INF
== END ==
LOC: M.CRD 08:58
PROVIDERS: ATTEND Internal Medicine Cardiovascular Disease
DX: I08.8 Other rheumatic multiple valve diseases (principal); I42.8 Other cardiomyopathies

== ENCOUNTER → 2021-10-22 | Outpatient (CLI) | payer MEDICARE, BC | LOC: M.ULTRA 10-21 16:00 | PROVIDERS: ATTEND Family Medicine | DX: S59.902A Unspecified injury of left elbow, initial encounter (principal); G31.9 Degenerative disease of nervous system, unspecified; I65.23 Occlusion and stenosis of bilateral carotid arteries; I48.20 Chronic atrial fibrillation, unspecified; R90.82 White matter disease, unspecified; R22.32 Localized swelling, mass and lump, left upper limb; W19.XXXA Unspecified fall, initial encounter; Y93.89 Activity, other specified; Y92.89 Other specified places as the place of occurrence of the external cause; Y99.8 Other external cause status ==